=== PATIENT | female | born 1950 | race Caucasian/White ===

== ENCOUNTER 2017-11-18 22:52 | Inpatient (IN) | payer OTHER, MEDICARE ==
[~2017-11-18] VITALS: Ht 175.3 cm; Wt 99.2 kg
[~2017-11-18 22:52] MED LIST: ACEPHEN650 M1 RC; ACETAMINOPHEN325 M3 PO; ACIDOPHILUS1 CAP PO; AGGRENOX 25 MG-1 CAP PO; AGGRENOX 25 MG1 EACH PO; ANTI-DIARRHEAL2 MG PO; APAP325 MG PO; ARTIFICIAL TEAR1 OIN IO; ARTIFICIAL TEAR15 M8 TOP; ATIVAN0.5 M1 PO; ATORVASTATIN CA10 M1 PO; ATORVASTATIN CA10 MG PO; ATORVASTATIN CA40 M1 PO; AZO CRANBERRY450 MG PO; B12 1MG PE1000 MCG/M IM; BANOPHEN25 MG PO; BISAC-EVAC10 M1 RC; BISAC-EVAC10 MG PR; BUPROPION SR150 MG PO; CELEXA20 M1 PO; CELEXA20 MG PO; CEPACOL PO; CIPRO 500MG TA500 MG PO; COLACE100 M1 PO; CYANOCOBAL1000 MCG/2 IM; DEEP SEA 45 ML45 ML NS; DUONEB 3 MG/3 ML3 ML INH/SOL; ENEMA READY TO133 ML RC; ESTRING1 EACH VAG; FENOFIBRATE200 MG PO; FIBER LAXATIV0.52 GM PO; FORTAMET1000 MG PO; GABAPENTIN400 MG PO; GLUCAGON EMERGEN1 M1 IM; HYDROCODON-ACE1 EAC2 PO; HYDROCODONE/ACE1 TA1 PO; HYDROCORTISO453.6 G1 TOP; IBUPROFEN400 M1 PO; INSTA-GLUCOSE G31 GM PO; IPRAT-ALBUT 0.5-3 ML PO; JANUVIA 100MG100 MG PO; JANUVIA100 M1 PO; LANTUS100 U/ML SC; LIDODERM 5% PAT1 PAT TOP; LIORESAL 10MG T10 MG PO; LOPRESSOR 25MG25 MG PO; LOTRIMIN1% TOP; LOVAZA1 GM PO; MAGNESIUM OXID400 MG PO; MAPAP325 MG PO; METFORMIN ER500 MG PO; MILK OF MA400 MG/5 M PO; MILK OF MA400 MG/52 PO; MIRALAX17 GM PO; MOTRIN 400MG (400 MG PO; MULTIVITAMIN1 TAB PO; MYRBETRIQ50 M1 PO; NAPROXEN SOD550 MG PO; NOVOLOG100 U/ML SC; Q TUSSIN DM PO; SALINE SOLUTIO360 ML NAS; SENNA CON/DOCUS1 TAB PO; TRAMADOL HCL50 M1 PO; TRAZODONE50 MG PO; TUMS200 MG PO; TUMS500 MG PO; VITAMIN B650 MG PO; VITAMIN D5000 IU PO; VITAMIN D50000 IU PO; WELLBUTRIN SR200 MG PO; WELLBUTRIN100 M1 PO; ZANAFLEX2 M2 PO; [UNRECOGNIZED DRUG - OTHER] PR
--- NOTE | 2017-11-18 22:57 | ED DYSPNEA/ASTHMA COMPLAINT ---
History of Present Illness General Chief Complaint: Dyspnea (COPD, CHF, Other) Stated Complaint: POSSIBLE ASPIRATION Source: patient, old records Exam Limitations: no limitations Allergies Coded Allergies: NO KNOWN ALLERGIES (UNKNOWN 05/04/17) Reconcile Medications Acetaminophen 325 MG CAPSULE 2 TAB PO Q4P PRN PAIN (Reported) Acetaminophen (Acephen) 650 MG SUPP.RECT 1 MG RC Q4 PRN TEMP (Reported) IF TEMP >101F GIVE Atorvastatin Calcium 40 MG TABLET 40 MG PO 1700 cholesterol Bisacodyl (Bisac-Evac) 10 MG SUPP.RECT 10 MG RC DAILY PRN CONSTIPATION ( Reported) Bupropion HCl (Bupropion XL) 150 MG TAB.ER.24H 1 TAB PO QPM DEPRESSION ( Reported) Calcium Carbonate (TUMS) 200 MG CALCIUM (500 MG) TAB.CHEW 2 TAB PO 4 TIMES/DAY GERD (Reported) Citalopram Hydrobromide (Celexa) 10 MG TABLET 1 TAB PO DAILY DEPRESSION ( Reported) Citalopram Hydrobromide (Celexa) 20 MG TABLET 1 TAB PO DAILY DEPRESSION ( Reported) Cyanocobalamin (Vitamin B-12) (Cyanocobalamin Injection) 1,000 MCG/ML VIAL 1 ML IM Q30D LOW VIT B12 (Reported) GIVEN ON OF EACH MONTH Dextrose/Dextrin/Maltose (Insta-Glucose Gel) 24 GRAM/31 GRAM GEL..GRAM. 24 GM PO DAILY PRN GLUCOSE<60 (Reported) Diphenhydramine HCl (Banophen) 25 MG CAPSULE 1 TAB PO Q6 PRN ITCHING ( Reported) Dipyridamole W/ Aspirin (Aggrenox 25 MG-200 MG Capsule) 25 MG-200 MG CPMP.12HR 1 CAP PO BID CVA (Reported) Docusate Sodium (Colace) 100 MG CAPSULE 1 CAP PO BID CONSTIPATION (Reported) HOLD IF LOOSE STOOL Estradiol (Estring) 7.5 MCG/24 HOUR VAG.RING 2 MG VAG ESTROGEN (Reported) Fenofibrate (Tricor) 48 MG TABLET 1 TAB PO 1200 HLD (Reported) Glucagon,Human Recombinant (Glucagon Emergency Kit) 1 MG KIT 1 MG IM AD PRN HYPOGLYCEMIA (Reported) Hydrocodone/Acetaminophen (Hydrocodon-Acetaminophen 5-325) 5 MG-325 MG TABLET 1 TAB PO Q6P PRN pain 8-10 Hydrocortisone 1 % CREAM..G. 1 LIZBETH TOP BID rash (arm) apply to affected area(s) Ibuprofen 400 MG TABLET 0.5 TAB PO Q6P PRN PAIN (Reported) Insulin Glargine,Hum.rec.anlog (Lantus Solostar) 100 UNIT/ML (3 ML) INSULN.PEN 12 UNIT SC QAM DM TYPE 2 (Reported) Ipratropium/Albuterol Sulfate (Iprat-Albut 0.5-3(2.5) MG/3 Ml) 0.5 MG-3 MG (2.5 MG BASE)/3 ML AMPUL.NEB 1 INH PO Q6 COPD (Reported) Lorazepam (Ativan) 0.5 MG TABLET 0.5 TAB PO Q8P PRN ANXIETY (Reported) Magnesium Hydroxide (Milk Of Magnesia) 400 MG/5 ML ORAL.SUSP 30 ML PO BID PRN CONSTIPATION (Reported) HOLD IF LOOSE STOOLS Metformin HCl (Fortamet) 1,000 MG TAB.ER.24 1 TAB PO BID DM TYPE 2 (Reported) Mirabegron (Myrbetriq) 50 MG TAB.ER.24H 0.5 TAB PO 1200 UNRINARY (Reported) Na Phos,M-B/Na Phos,Di-Ba (Enema Ready To Use) 19 GRAM-7 GRAM/118 ML ENEMA 1 LIZBETH RC DAILY PRN CONSTIPATION (Reported) Polyvinyl Alcohol (Artificial Tears) 1.4 % DROPS 2 DROP TOP BID PRN DRY EYES (Reported) Pregabalin (Lyrica) 75 MG CAPSULE 1 CAP PO Q8 DM NEUROPATHY PAIN (Reported) Psyllium Husk (Fiber Laxative) 0.52 GRAM CAPSULE 1 CAP PO DAILY PRN DIARRHEA (Reported) Sitagliptin Phosphate (Januvia) 100 MG TABLET 1 TAB PO DAILY TYPE 2 DM ( Reported) Soft Lens Rinse-Store Solution (Saline Solution) 360 ML SOLUTION 2 SPRAY BISI BID PRN ALLERGIES (Reported) GIVEN IN EACH NOSTRIL Tizanidine HCl (Zanaflex) 2 MG CAPSULE 1 CAP PO BID MUSLCE SPAMS (Reported) Tramadol HCl 50 MG TABLET 1 TAB PO BIDP PRN PAIN (Reported) Triage Nurses Notes Reviewed? yes Onset: Gradual Duration: hour(s): Timing: single episode today Severity: moderate HPI: 67yo female with hx of CVA, DM, aspiration PNA BIBA from assisted living for aspiration of vomit prior to arrival. Patient states she was taking bowel prep for colonoscopy/endoscopy scheduled for tomorrow. Patient believes she aspirated on some of her vomitus, complaining of dyspnea and cough. Patient also reports persistent nausea. Patient states she has had aspiration pneumonia resulting from colonoscopy prep in the past. When EMS arrived on scene patient' s O2 sat 87% on RA, she was given supplemental oxygen. Patient reports cramping abdominal pain which is under workup through GI, the reason for her scheduled colonoscopy tomorrow. Patient denies chest pain, diarrhea, constipation. (Arlette Thompson) Vital Signs & Intake/Output Vital Signs & Intake/Output Vital Signs Date Time Temp Pulse Resp B/P B/P Pulse O2 O2 Flow FiO2 Mean Ox Delivery Rate 11/19 0038 100.6 11/18 2351 95 Nasal 5.0L Cannula 11/18 2334 100.6 116 18 125/56 95 Nasal 6.0L Cannula 11/18 2301 91 Nasal 4.0L Cannula ED Intake and Output 11/19 0000 11/18 1200 Intake Total 0 Output Total Balance 0 Intake, Oral 0 (Alycia MORENO,Feliciano Escobar) Past History Medical History Any Pertinent Medical History? 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 Hx Contributory? No (Arlette Thompson) Review of Systems Review of Systems Constitutional: Reports: no symptoms. EENTM: Reports: no symptoms. Respiratory: Reports: see HPI. Cardiovascular: Reports: no symptoms. GI: Reports: see HPI. Genitourinary: Reports: no symptoms. Musculoskeletal: Reports: no symptoms. Skin: Reports: no symptoms. Neurological/Psychological: Reports: no symptoms. Hematologic/Endocrine: Reports: no symptoms. Immunologic/Allergic: Reports: no symptoms. All Other Systems: Reviewed and Negative ([place] PA,Arlette Bar) Physical Exam Physical Exam General Appearance: well developed/nourished, no apparent distress, alert, awake , vomitus on patient's gown Head: atraumatic, normal appearance Eyes: Bilateral: normal appearance. Ears, Nose, Throat: hearing grossly normal Neck: normal inspection, supple, full range of motion Respiratory: no respiratory distress, diminished breath sounds bilateral lung bases with corse breath sounds RLL Cardiovascular: tachycardia Peripheral Pulses: 2+ radial (R), 2+ radial (L) Gastrointestinal: normal bowel sounds, soft, non-tender, no organomegaly Extremities: normal inspection Neurologic/Psych: awake, alert, oriented x 3 Skin: intact, normal color Core Measures ACS in differential dx? No CVA/TIA Diagnosis No Sepsis Present: No Sepsis Focused Exam Completed? No (Arlene PINZON,Arlette Bar) ED Sepsis Exam Date of Focused Sepsis Exam: 11/19/17 Time of Focused Sepsis Exam: 0035 Sepsis Cardiac Exam: Tachycardia Sepsis Resp Exam: diminished b/l bases Sepsis Cap Refill Exam: <2 Sec Sepsis Peripheral Pulse Exam: Normal Sepsis Peripheral Pulse Location: Radial Sepsis Skin Color Exam: Normal for Ethnicity Skin Temp/Moisture Exam: Warm/Dry (Arlene PINZON,Arlette Bar) Progress Differential Diagnosis: asthma, AMI, bronchitis, costochondritis, COPD, pneumonia Diagnostic Imaging: Viewed by Me: Radiology Read. Discussed w/RAD: Radiology Read. Radiology Impression: PATIENT: JUSTIN ZAPATA PRESENT AGE: 67 PATIENT ACCOUNT NO: [id number] : 51 LOCATION: [facility] ORDERING PHYSICIAN: Arlette PINZON SERVICE DATE: 11/18/17 EXAM TYPE: RAD - XRY-CHEST XRAY, SINGLE VIEW EXAMINATION:\\H\\ \\N\\XR CHEST CLINICAL INFORMATION: Dyspnea. Cough. COMPARISON: Chest x-ray 08/09/2017 TECHNIQUE: Frontal view of the chest was obtained. 11:13 PM FINDINGS: Surgical clips over the right side of the chest. Lung volume is low. There is a patchy airspace opacity at the right lung base suspicious for infiltrate. This is new since the radiograph 08/09/2017. Left lung remains clear. There is no significant central pulmonary vascular congestion. There is no pleural effusion. The cardiac and mediastinal contours are unchanged. IMPRESSION: Right lower lobe parenchymal infiltrate. DICTATED BY: Ranjit John MD DATE/TIME DICTATED:11/18/172327 PRECISION DEVICES INSPECTOR/TESTER:TONY DATE/TIME TRANSCRIBED:11/18/172327 CONFIDENTIAL, DO NOT COPY WITHOUT APPROPRIATE AUTHORIZATION. <Electronically signed in Other Vendor System> SIGNED BY: Ranjit John MD 11/18/172332 Initial ED EKG: sinus tachycardia @115bpm, LVH, nonspecific ST changes Prior EKG: unchanged (07/07/16) (Arlene PINZON,Arlette Bar) Plan of Care: Orders Procedure Date/time Status LACTIC ACID 11/19 0156 Active Patient Data 11/20 39 Active RAPID VIRAL INFLUENZA A 11/19 2255 Active BLOOD CULTURE 11/19 2255 Active URINALYSIS 11/19 2255 Active TROPONIN LEVEL 11/19 2255 Complete LACTIC ACID 11/19 2255 Complete COMPREHENSIVE METABOLIC PANEL 11/19 2255 Complete CBC WITHOUT DIFFERENTIAL 11/19 2255 Complete EKG 11/19 2255 Active Current Medications Sig/Sravani Start time Last Medication Dose Stop Time Status Admin Sodium Chloride 1,000 ML BOLUS ONE 11/19 0045 AC (Normal Saline 0.9%) 11/19 0144 Sodium Chloride 1,000 ML BOLUS ONE 11/19 0045 AC (Normal Saline 0.9%) 11/19 0144 Sodium Chloride 1,000 ML BOLUS ONE 11/19 0030 AC (Normal Saline 0.9%) 11/19 0129 Sodium Chloride 1,000 ML ONCE ONE 11/18 2345 AC 11/19 (Normal Saline 0.9%) 11/19 0624 0008 Laboratory Tests 11/18/172322: Anion Gap 17 H, Estimated GFR > 60, BUN/Creatinine Ratio 38.8 H, Glucose 206 H, Lactic Acid 2.1, Calcium 9.6, Total Bilirubin 0.6, AST 17, ALT 18, Alkaline Phosphatase 78, Troponin I < 0.01, Total Protein 7.6, Albumin 4.0, Globulin 3.6, Albumin/Globulin Ratio 1.1, CBC w Diff NO MAN DIFF REQ, RBC 4.04 L, MCV 87.8, MCH 27.8, MCHC 31.7 L, RDW 15.5 H, MPV 8.2, Gran % 83.8 H, Lymphocytes % 12.4 L, Monocytes % 3.2, Eosinophils % 0.3, Basophils % 0.3, Absolute Granulocytes 12.6 H, Absolute Lymphocytes 1.9, Absolute Monocytes 0.5, Absolute Eosinophils 0.1, Absolute Basophils 0 Microbiology 11/19 0005 BLOOD: Blood Culture - RECD 11/19 0000 BLOOD: Blood Culture - RECD 11/18 2256 NASOPHARYN: Influenza Virus A & B Rapid Smear - ORD Patient requires supplemental oxygen given her hypoxia at rest. Patient's blood work shows leukocytosis, elevated lactic acid. Patient's chest x-ray shows right lower lobe infiltrate. Patient meets criteria for severe sepsis. She was started on IV Unasyn, IV fluids. Patient was seen and evaluated by Dr. Tong. I spoke with hospitalist, Dr. Ricks regarding patient's general medicine admission. (Arlene PINZON,Arlette Bar) Comments: 11/19/2017 12:30:46 AM other than pain secondary to a "bedsore" the patient states she has no trouble breathing or chest pains currently. Oxygen saturation is 95% on nasal cannula. (Alycia MORENO,Feliciano Escobar) Departure Departure Disposition: STILL A PATIENT Condition: Stable Clinical Impression Primary Impression: Aspiration pneumonia Qualifiers: Aspiration pneumonia type: unspecified Laterality: right Lung location: lower lobe of lung Qualified Code: J69.0 - Pneumonitis due to inhalation of food and vomit Secondary Impressions: Severe sepsis Referrals: Andre MORENO,Grant Scott (PCP/Family) Departure Forms: Customer Survey General Discharge Information Admission Note Spoke With: Shaunna Ricks MD Documentation of Exam: Documentation of any treatments & extenuating circumstances including Concerns Regarding Discharge (functional status, medication knowledge or non-compliance, living conditions, etc.) that warrant an admission rather than observation: [ Aspiration pneumonia, severe sepsis, hypoxia requiring supplemental oxygen, IV antibiotics, IV fluids, respiratory therapy treatments repeat labs, premature discharge medically unsafe] (Arlette Thompson) PA/GARBAGE PICK UP MAN Co-Sign Statement Statement: ED Attending supervision documentation- [x] I saw and evaluated the patient. I have also reviewed all the pertinent lab results and diagnostic results. I agree with the findings and the plan of care as documented in the PA's/GARBAGE PICK UP MAN's documentation. Patient presents for evaluation of possible aspiration. Physical examination reveals rhonchi anteriorly. [] I have reviewed the ED Record and agree with the PA's/GARBAGE PICK UP MAN's documentation. [] Additions or exceptions (if any) to the PAs/GARBAGE PICK UP MAN's note and plan are summarized below: [] (Alycia MORENO,Feliciano Escobar) Critical Care Note Critical Care Note Critical Care Time: 30-74 min (Arlene PINZON,Arlette Bar)
[2017-11-18 23:29] LABS: ABSOLUTE BASOPHIL COUNT 0 /CUMM (0.0-0.2); ABSOLUTE EOSINOPHIL COUNT 0.1 /CUMM (0.0-0.7); ABSOLUTE LYMPH COUNT 1.9 /CUMM (1.2-3.4); ABSOLUTE MONOCYTE COUNT 0.5 /CUMM (0.10-0.60); BASOPHIL % 0.3 % (0.0-2.0); EOSINOPHIL % 0.3 % (0-5); GRANULOCYTE % 83.8 % (42.2-75.2); HEMATOCRIT 35.5 % (37-47); MEAN CORPUSCULAR HGB 27.8 PG (27.0-31.0); MEAN CORPUSCULAR HGB CONC 31.7 G/DL (33.0-37.0); MEAN CORPUSCULAR VOLUME 87.8 FL (81.0-99.0); MEAN PLATELET VOLUME 8.2 FL (7.4-10.4); PLATELET COUNT 237 /CUMM (130-400); RBC DISTRIBUTION WIDTH 15.5 % (11.5-14.5); RED BLOOD CELL CT 4.04 /CUMM (4.20-5.40)
[2017-11-18 23:30] LABS: ABSOLUTE GRANULOCYTE CT 12.6 /CUMM (1.4-6.5)
--- NOTE | 2017-11-18 23:33 | RADIOLOGY REPORT ---
EXAMINATION:\H\ \N\XR CHEST CLINICAL INFORMATION: Dyspnea. Cough. COMPARISON: Chest x-ray 08/09/2017 TECHNIQUE: Frontal view of the chest was obtained. 11:13 PM FINDINGS: Surgical clips over the right side of the chest. Lung volume is low. There is a patchy airspace opacity at the right lung base suspicious for infiltrate. This is new since the radiograph 08/09/2017. Left lung remains clear. There is no significant central pulmonary vascular congestion. There is no pleural effusion. The cardiac and mediastinal contours are unchanged. IMPRESSION: Right lower lobe parenchymal infiltrate.
--- NOTE | 2017-11-19 00:50 | History & Physical ---
Kiana MORENO,Harjeet 11/19/17 0049: General Information and HPI MD Statement: I have seen and personally examined JUSTIN ZAPATA and documented this H&P. The patient is a 67 year old F who presented with a patient stated chief complaint of [aspiration]. Source of Information: patient, old records Exam Limitations: no limitations History of Present Illness: Patient is a 67-year-old female with an extensive past medical history significant for dysphasia, CVA/TIAs with residual right-sided weakness, depression, anxiety, COPD, OA, insulin-dependent diabetes mellitus, HLD, chronic pressure ulcers on her buttocks and coccyx, chronic neck/back pain, who was brought into the [facility] ED by ambulance from [facility] for suspected aspiration. Patient was taking a bowel prep in anticipation for a colonoscopy the following day. She reports after taking one of the doses of the bowel prep she felt nauseated and vomited, after which she experienced severe shortness of breath and was coughing. She did not produce any sputum with the cough, no blood in emesis. She reports chronic intermittent abdominal cramping pain that was made worse with the episode of emesis. She began having chills after this episode, was eventually able to catch her breath was so was coughing, she also reported lightheadedness which has since resolved. She denied any chest pain, palpitations, syncope, subjective fevers. Allergies/Medications Allergies: Coded Allergies: NO KNOWN ALLERGIES (UNKNOWN 05/04/17) Home Med list Acetaminophen 325 MG CAPSULE 2 TAB PO Q4P PRN PAIN (Reported) Acetaminophen (Acephen) 650 MG SUPP.RECT 1 MG RC Q4 PRN TEMP (Reported) IF TEMP >101F GIVE Atorvastatin Calcium 40 MG TABLET 40 MG PO 1700 cholesterol Bisacodyl (Bisac-Evac) 10 MG SUPP.RECT 10 MG RC DAILY PRN CONSTIPATION ( Reported) Calcium Carbonate (TUMS) 200 MG CALCIUM (500 MG) TAB.CHEW 2 TAB PO 4 TIMES/DAY GERD (Reported) Citalopram Hydrobromide (Celexa) 20 MG TABLET 1 TAB PO DAILY DEPRESSION ( Reported) Cyanocobalamin (Vitamin B-12) (Cyanocobalamin Injection) 1,000 MCG/ML VIAL 1 ML IM Q30D LOW VIT B12 (Reported) GIVEN ON OF EACH MONTH Dextrose/Dextrin/Maltose (Insta-Glucose Gel) 24 GRAM/31 GRAM GEL..GRAM. 24 GM PO DAILY PRN GLUCOSE<60 (Reported) Diphenhydramine HCl (Banophen) 25 MG CAPSULE 1 TAB PO Q6 PRN ITCHING ( Reported) Dipyridamole W/ Aspirin (Aggrenox 25 MG-200 MG Capsule) 25 MG-200 MG CPMP.12HR 1 CAP PO BID CVA (Reported) Docusate Sodium (Colace) 100 MG CAPSULE 1 CAP PO BID CONSTIPATION (Reported) HOLD IF LOOSE STOOL Estradiol (Estring) 7.5 MCG/24 HOUR VAG.RING 2 MG VAG ESTROGEN (Reported) Glucagon,Human Recombinant (Glucagon Emergency Kit) 1 MG KIT 1 MG IM AD PRN HYPOGLYCEMIA (Reported) Hydrocodone/Acetaminophen (Hydrocodon-Acetaminophen 5-325) 5 MG-325 MG TABLET 1 TAB PO Q6P PRN pain 8-10 Hydrocortisone 1 % CREAM..G. 1 LIZBETH TOP BID rash (arm) apply to affected area(s) Ibuprofen 400 MG TABLET 0.5 TAB PO Q6P PRN PAIN (Reported) Insulin-Lantus (Lantus) 100 UNIT/ML VIAL 28 UNITS SC DAILY DIABETES (Reported ) Ipratropium/Albuterol Sulfate (Iprat-Albut 0.5-3(2.5) MG/3 Ml) 0.5 MG-3 MG (2.5 MG BASE)/3 ML AMPUL.NEB 1 INH PO Q6 COPD (Reported) Lorazepam (Ativan) 0.5 MG TABLET 0.5 TAB PO Q8P PRN ANXIETY (Reported) Magnesium Hydroxide (Milk Of Magnesia) 400 MG/5 ML ORAL.SUSP 30 ML PO BID PRN CONSTIPATION (Reported) HOLD IF LOOSE STOOLS Metformin HCl (Fortamet) 1,000 MG TAB.ER.24 1 TAB PO BID DM TYPE 2 (Reported) Mirabegron (Myrbetriq) 50 MG TAB.ER.24H 0.5 TAB PO 1200 UNRINARY (Reported) Na Phos,M-B/Na Phos,Di-Ba (Enema Ready To Use) 19 GRAM-7 GRAM/118 ML ENEMA 1 LIZBETH RC DAILY PRN CONSTIPATION (Reported) Polyvinyl Alcohol (Artificial Tears) 1.4 % DROPS 2 DROP TOP BID PRN DRY EYES (Reported) Pregabalin (Lyrica) 100 MG CAPSULE 1 CAP PO TID MUSCLE SPASMS (Reported) Psyllium Husk (Fiber Laxative) 0.52 GRAM CAPSULE 1 CAP PO DAILY PRN DIARRHEA (Reported) Sitagliptin Phosphate (Januvia) 100 MG TABLET 1 TAB PO DAILY TYPE 2 DM ( Reported) Soft Lens Rinse-Store Solution (Saline Solution) 360 ML SOLUTION 2 SPRAY BISI BID PRN ALLERGIES (Reported) GIVEN IN EACH NOSTRIL Tizanidine HCl (Zanaflex) 2 MG CAPSULE 1 CAP PO BID MUSLCE SPAMS (Reported) Tramadol HCl 50 MG TABLET 1 TAB PO BIDP PRN PAIN (Reported) Past History Travel History Traveled to [place] past 21 day No Medical History Neurological: CVA, migraine EENT: NONE Cardiovascular: NONE Respiratory: pneumonia, ASPIRATION PNA Gastrointestinal: NONE Hepatic: NONE Renal: UTI'S Musculoskeletal: disk herniation, C-SPINE Psychiatric: NONE Endocrine: diabetes Blood Disorders: NONE Cancer(s): NONE 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 Psychosocial History Where do you live? [facility] Services at Home: Nursing Primary Language: Icelandic Smoking Status: Former Smoker ETOH Use: denies use Illicit Drug Use: denies illicit drug use Functional Ability Ambulation: non-ambulatory Review of Systems Review of Systems Constitutional: Reports: chills. Denies: fever. EENTM: Reports: no symptoms. Cardiovascular: Denies: chest pain, palpitations, syncope. Respiratory: Reports: cough, short of breath. Denies: sputum production. GI: Reports: abdominal pain, nausea, vomiting. Denies: diarrhea, melena. Genitourinary: Reports: no symptoms. Musculoskeletal: Reports: back pain, neck pain. Skin: Reports: no symptoms. Neurological/Psychological: Reports: pre-existing deficit. Exam & Diagnostic Data Last 24 Hrs of Vital Signs/I&O Vital Signs Date Time Temp Pulse Resp B/P B/P Pulse O2 O2 Flow FiO2 Mean Ox Delivery Rate 11/19 0148 99.4 115 20 94 Nasal 5.0L Cannula 11/19 0038 100.6 11/18 2351 95 Nasal 5.0L Cannula 11/18 2334 100.6 116 18 125/56 95 Nasal 6.0L Cannula 11/18 2301 91 Nasal 4.0L Cannula Intake & Output 11/19 0800 11/19 0000 11/18 1600 Intake Total 0 Output Total Balance 0 Intake, Oral 0 Physical Exam General Appearance Alert, Oriented X3, No Acute Distress, not cooperative with lung exam, refused to allow auscultation of posterior lung bai or skin exam of her chronic pressure wounds Skin Temp/Moisture Exam: Warm/Dry Sepsis Skin Exam (color): Normal for Ethnicity HEENT dry mucous membranes Cardiovascular Regular Rate, Normal S1, Normal S2 Lungs diffuse rhconchi, exam limited by patient not allowing exam of posterior lung bai Abdomen Normal Bowel Sounds, Soft, diffuse mild tenderness to palpation, no rebound tenderness or gaurding, surgical scar on the epigastrum Neurological R sided hemiparesis, RUE 3/5, RLE 3/5 strength, normal sensation Extremities No Clubbing, No Cyanosis, No Edema, Normal Pulses Sepsis Peripheral Pulse Location: Radial Sepsis Peripheral Pulse Exam: Normal Sepsis Cap Refill Exam: <2 Sec Last 24 Hrs of Labs/Jameson: Laboratory Tests 11/19/17 0232: Urine Color Pending, Urine Clarity Pending, Urine pH Pending, Ur Specific [place] Pending, Urine Protein Pending, Urine Ketones Pending, Urine Nitrite Pending, Urine Bilirubin Pending, Urine Urobilinogen Pending, Ur Leukocyte Esterase Pending, Ur Microscopic Pending, Urine Hemoglobin Pending, Urine Glucose Pending 11/19/17 0203: Lactic Acid Pending 11/18/17 2323: Anion Gap 17 H, Estimated GFR > 60, BUN/Creatinine Ratio 38.8 H, Glucose 206 H, Lactic Acid 2.1, Calcium 9.6, Total Bilirubin 0.6, AST 17, ALT 18, Alkaline Phosphatase 78, Troponin I < 0.01, Total Protein 7.6, Albumin 4.0, Globulin 3.6, Albumin/Globulin Ratio 1.1, CBC w Diff NO MAN DIFF REQ, RBC 4.04 L, MCV 87.8, MCH 27.8, MCHC 31.7 L, RDW 15.5 H, MPV 8.2, Gran % 83.8 H, Lymphocytes % 12.4 L, Monocytes % 3.2, Eosinophils % 0.3, Basophils % 0.3, Absolute Granulocytes 12.6 H, Absolute Lymphocytes 1.9, Absolute Monocytes 0.5, Absolute Eosinophils 0.1, Absolute Basophils 0 Microbiology 11/19 0150 NASOPHARYN: Influenza Virus A & B Rapid Smear - COMP 11/19 0005 BLOOD: Blood Culture - RECD 11/19 0000 BLOOD: Blood Culture - RECD Diagnostic Data EKG Results Sinus tachycardia, HR 114, no significant ST-T changes CXR Results FINDINGS: Surgical clips over the right side of the chest. Lung volume is low. There is a patchy airspace opacity at the right lung base suspicious for infiltrate. This is new since the radiograph 08/09/2017. Left lung remains clear. There is no significant central pulmonary vascular congestion. There is no pleural effusion. The cardiac and mediastinal contours are unchanged. IMPRESSION: Right lower lobe parenchymal infiltrate. Assessment/Plan Assessment: Patient is a 67-year-old female with an extensive past medical history significant for dysphasia, CVA/TIAs with residual right-sided weakness, depression, anxiety, COPD, OA, insulin-dependent diabetes mellitus, HLD, chronic pressure ulcers on her buttocks and coccyx, chronic neck/back pain, who was brought into the [facility] ED by ambulance from [facility] for suspected aspiration. Patient meets criteria for severe sepsis with 3 SIRS criteria: Tachycardia, fever, leukocytosis. Also elevated lactic acid 2.1. Vital signs on presentation: T 100.6, P116, RR 18, BP 125/56, 91% on 4 L O2 nasal cannula (of note EMS reported that patient desaturated to 87% and worked to hospital on room air) Pertinent labs on admission: WBC 15, H&H 11.2/35.5, lactic acid 2.1, BUN 31, glucose 206 Problem list #Severe sepsis secondary to aspiration pneumonia #Acute hypoxic respiratory failure secondary to pneumonia #Chronic medical problems Plan -Admit to general medicine -Aggressive IV fluid rehydration with normal saline -Aspiration precautions -IV Unasyn -TRC/nebs -Patient adamantly refuses swallow evaluation, she has been made aware of the risks associated with recurrent aspiration and worsening of her pneumonia -Trend lactic acid until normal Diet: Regular diet nectar thick liquids, regular solids DVT prophylaxis: Lovenox, ALPS CODE STATUS: DNR/DNI As Ranked By This Provider Problem List: 1. Aspiration pneumonia Qualifiers Aspiration pneumonia type: unspecified Laterality: right Lung location: lower lobe of lung Qualified Code: J69.0 - Pneumonitis due to inhalation of food and vomit 2. Severe sepsis Core Measures/Misc (05/09) Acute Coronary Syndrome ACS Diagnosis: No Congestive Heart Failure Congestive Heart Failure Diagnosis No Cerebrovascular Accident CVA/TIA Diagnosis: No VTE (View Protocol) VTE Risk Factors Immobility No Mechanical VTE Prophylaxis d/t N/A MechProphylax Ordered No VTE Pharm Prophylaxis d/t NA PharmProphylax ordered Sepsis (View protocol) Sepsis Present: Yes Susy Rodriguez 11/19/17 0257: Resident Review Statement Resident Statement: examined this patient, discussed with international trade manager, agreed with international trade manager, reviewed EMR data (avail), reviewed images Other Findings: 66-year-old female, wheelchair-bound, former heavy tobacco user with a history of,COPD not on home oxygen, GERD, hypertension, dyslipidemia, insulin-dependent diabetes mellitus, urinary incontinence, chronic anemia, peripheral vascular disease s/p LE stents, cervical spine disease s/p surgical interventions, and previous strokes/TIAs with residual right hemiparesis, dysphasia on aggrenox, chronic pressure ulcers on buttocks and coccyx, depression, anxiety, who presented from her SNF shortness breath and desaturation when she was taking a prep [30 ounces] for a endoscopy and colonoscopy scheduled for today at [facility]. Patient found to be desaturating to 87% on room air and placed on nonrebreather by EMS. Denied any cough with expectoration, chest pain, palpitations, syncope, subjective fevers, bloody diarrhea, constipation, headaches or worsening weakness Vitals on examination MAXIMUM TEMPERATURE 100.6, heart rate 116, respiratory rate 18, saturating 95% on 6 L nasal cannula, blood pressure 125/56 On examination alert and oriented 3, very dry mucous membranes, pupils equal round and reactive, RS: Bilateral coarse rhonchi, CVS S1-S2 no murmurs heard Abdomen: Soft, diffuse tenderness to palpation, no guarding no rigidity or skin discoloration noted, scar from previous PEG tube site present. MSK: No edema appreciated. Right arm contracted unable to spread her fingers power 2-3 out of 5, rest of her extremities are 3-4/5. Patient refused to allow us to examine her ulcers. Labs significant for WBC 15, hemoglobin 11.2, hematocrit 35.5, platelets 237, sodium 141, potassium 4.3, chloride 104, carb 20, B1 31, creatinine 0.8, glucose 206, lactic acid 2.1, normal LFT, troponin negative, UA pending. Chest x-ray significant for Surgical clips over the right side of the chest. Lung volume is low. There is a patchy airspace opacity at the right lung base suspicious for infiltrate. This is new since the radiograph 08/09/2017. Left lung remains clear.There is no significant central pulmonary vascular congestion. There is no pleural effusion. The cardiac and mediastinal contours are unchanged. EKG HR 115,NSR, Last echo done 05/05/2017 showed EF of 55% Assessment: Acute hypoxic respiratory failure in the setting of severe sepsis secondary to possible aspiration pneumonia versus healthcare associated pneumonia Problem list: Acute hypoxic respiratory failure Severe sepsis Diabetes mellitus CVA Cervical stenosis Depression/anxiety Chronic pressure ulcers Plan -Admit patient to general medicine floor, vitals per protocol, aspiration precautions -Currently on 3RD L of bolus ns, continue to monitor BP closely -TRC/nebs, taper supplemental oxygen to keep O2 above 90 -Trend Lactic acid -Holding Imdur -Continue IV Unasyn pending blood /sputum/urine cultures,strep/legion Ag -Accucheck, ISS, on 28 units of glargine-> will cut down to 14 and reassess later -diabetic diet -holding metformin -continue home meds of celexa, lyrica, myrbetiq,statin,aggrenox and zanaflex -Pt was scheduled for endoscopy and colonscopy. Please inform Dr. Hitchcock's office of her admission. -wound consult in am Patient is aware that she is high risk for aspiration and its consequences of her condition worsening, she still wishes to be on a regular diet with thickened liquids. Declined to be kept NPO and go for swallow eval. dvt ppx sc lovenox DNR/DNI Shaunna Ricks 11/19/17 0525: Attending MD Review Statement Attending Statement Attending MD Statement: examined this patient, discuss w/resident/PA/ARM MAKER, agreed w/resident/PA/ARM MAKER, reviewed EMR data (avail), reviewed images, amended to note Attending Assessment/Plan: CC: Choking on vomiting PMH: HTN, DM2, CVA with residual right-sided weakness, HLD, cervical spondylosis , HFrEF, RA, ? Overactive bladder: On diapers, ?COPD, anxiety and depression, GERD, oropharyngeal dysphagia Patient was brought in ER through EMS from [facility] after an episode of aspiration on vomiting. Patient is non-ambulating, wheelchair-bound and bedbound secondary to her CVA, residual right-sided weakness, contractures and arthritis. She had a scheduled endoscopy and colonoscopy tomorrow and was undergoing bowel preparation. She drank 30 mL solution when she had an episode of vomiting followed by which her oxygen saturation dropped to 87%, she had significant coughing episode, significantly short of breath. She had an episode of chills and abdominal pain. Vomiting was nonbloody. No diarrhea. She was immediately rushed to ER. Patient was on NRB in EMS and was placed on 4 L nasal cannula on arrival in ER. Other than these complaints ROS unremarkable. Patient was undergoing prep and month of August when she had similar episode but she does not recall where she was hospitalized. The bowel prep was discontinued and her procedure was rescheduled for tomorrow and this time instead of GoLYTELY she was getting MoviPrep. She does have a history of dysphagia and had history of PEG tube placement after her stroke for 3 years in early but now she eats regular solids and nectar thick liquids. Vitals: T max 100.6, pulse 116, RR 18, blood pressure 125/56, saturating 91% on 5 L nasal cannula On exam: A O 3, cooperative, mild respiratory distress, neck supple, JVD normal , no lymphadenopathy, mucosa dry, residual right-sided weakness, no new focal neuro deficit, bilateral upper extremity contractures, remarkable arthritis and deformities no dependent edema, no obvious skin rashes or inflammation CVS: S1- S2, RRR. RS: Clear to auscultate bilaterally. Abdomen: Soft, NT, ND, bowel sounds present. Patient has a small skin break on left side of coccyx, and noninfected, blanching and redness on right buttock but no open wound. CXR: right lower lobe parenchymal infiltrate. Assessment and plan 67-year-old female with multiple comorbidities as mentioned above was presented in ER after an episode of aspiration on her vomiting. She was undergoing bowel prep for scheduled colonoscopy, after drinking 30 mL of MoviPrep patient vomited and then aspirated on vomiting and immediately had severe shortness of breath cough, chills, hypoxia. Patient was rushed to ER through EMS and was placed on nonrebreather. Patient was saturating 87% on arrival in ER on room air. Was placed on 5 L nasal cannula, saturating 92-95%. Patient appears mild to moderate respiratory distress, rhonchi bilaterally, no JVD, mucosa dry. Patient has significant leukocytosis with left shift, fever spike, tachycardia and lactic acidosis. X-ray confirms the finding of aspiration pneumonia. Patient appears to have severe sepsis secondary to aspiration and will benefit admission for IV antibiotics, supplemental oxygen, nebulization treatment. Patient refuses to be nothing by mouth, refuses swallow evaluation and wants to eat. + Aspiration pneumonia + Severe sepsis + Acute hypoxic respiratory failure + History of HTN, DM2, CVA with residual right-sided weakness, HLD, cervical spondylosis, HFrEF, RA, ? Overactive bladder: On diapers, ?COPD, anxiety and depression, GERD, oropharyngeal dysphagia - Admit to general medicine - Continue aggressive hydration - Trend lactate - Obtain blood culture, sputum cultures - Continue IV Unasyn - TRC nebs - Continue nectar thick liquids and regular solids - Patient refuses swallow evaluation - Continue all her home medications except oral hypoglycemic, continue basal and bolus insulin - DVT prophylaxis - DVT prophylaxis
[2017-11-19] MEDS ORDERED: LANTUS100 UNIT/1 SC (02:39)
[2017-11-19] MEDS ORDERED: LYRICA100 M1 PO (02:50)
[2017-11-19 03:21] VITALS: BP 128/54
--- NOTE | 2017-11-19 05:27 | Admission Certification ---
Admission Certification Certification Statement - As attending physician, I certify that at the time of - admission, based on clinical presentation, severity of - symptoms, need for further diagnostic testing and - therapeutic interventions, and risk of adverse outcomes - without in-hospital treatment, in my clinical assessment, - this patient requires an acute hospital stay for a minimum - of two nights or longer. I have also considered psychsocial - factors such as support system, advanced age, financial - issues, cognitive issues, and failed out-patient treatments, - past re-admission history, safety of patient, and lack of - compliance as applicable. Specific rationale supporting this admission is: aspiration pneumonia
--- NOTE | 2017-11-19 07:14 | PN- Housestaff ---
Subjective Follow-up For: Aspiration pneumonia. Subjective: Ms Roberts was seen and examined this morning. She is resting comfortably in bed. She states that she is very tired owing to the fact that she did not get much rest yesterday. She states she does feel better and has found being in the hospital last few hours has helped. She denies any fever, chills, nausea, vomiting. States that she is not experiencing any cough, shortness of breath, chest pain or any chest discomfort. She is not endorsing any pain at the moment. She had a wound care consult prior to her clinical interaction. States that she would like to order a diet. Review of Systems Constitutional: Reports: see HPI. Objective Last 24 Hrs of Vital Signs/I&O Vital Signs Date Time Temp Pulse Resp B/P B/P Pulse O2 O2 Flow FiO2 Mean Ox Delivery Rate 11/19 1043 96 Nasal 3.0L Cannula 11/19 1039 Nasal 3.0L Cannula 11/19 0716 99.8 98 20 132/56 93 11/19 0321 99.8 100 20 128/54 93 11/19 0252 Nasal 5.0L Cannula 11/19 0148 99.4 115 20 94 Nasal 5.0L Cannula 11/19 0038 100.6 11/18 2351 95 Nasal 5.0L Cannula 11/18 2334 100.6 116 18 125/56 95 Nasal 6.0L Cannula 11/18 2301 91 Nasal 4.0L Cannula Intake & Output 11/19 1600 11/19 0800 11/19 0000 Intake Total 1340 0 Output Total Balance 1340 0 Intake, IV 1100 Intake, Oral 240 0 Patient 99.2 kg Weight Weight Bed scale Measurement Method Physical Exam General Appearance: Alert, Oriented X3, Cooperative Skin: Stage 2 pressure injury on Coccyx 0.3 cm X 0.1 cm Right buttock noted with a 0.4 x 0.7 cm area of raised scar tissue with maceratioon/superficial breakdown at surface and irregular appearance noted. Presented as stage two. Cardiovascular: Normal S1, Normal S2 Lungs: Normal Air Movement, Diminished Breath Sounds Bilaterally Abdomen: Normal Bowel Sounds, Soft, No Tenderness Neurological: Normal Speech Extremities: No Edema, Normal Pulses, No Tenderness/Swelling Vascular: Normal Pulses Current Medications: Current Medications Sig/Sravani Start time Last Medication Dose Route Stop Time Status Admin Acetaminophen 0 .STK-MED ONE 11/19 0013 DC IV Acetaminophen 1,000 MG ONCE ONE 11/18 2345 DC 11/19 N/A 1 UNIT IV 11/18 2359 0038 Albuterol Sulfate 3 ML Q4P PRN 11/19 1100 AC INH Albuterol Sulfate 3 ML ONCE ONE 11/18 2300 DC 11/18 INH 11/18 2301 2301 Ampicillin Sodium/ 3,000 MG Q6 11/19 0600 AC 11/19 Sulbactam Sodium IV 1256 Sodium Chloride 100 ML Ampicillin Sodium/ 0 .STK-MED ONE 11/19 0013 DC Sulbactam Sodium .ROUTE Ampicillin Sodium/ 3,000 MG ONCE ONE 11/18 2345 DC 11/19 Sulbactam Sodium IV 11/19 0014 0008 Sodium Chloride 100 ML Atorvastatin Calcium 40 MG 1700 11/19 1700 AC PO Citalopram 20 MG DAILY 11/19 1000 AC 11/19 Hydrobromide PO 1059 Dipyridamole/Aspirin 1 CAP BID 11/19 1000 AC 11/19 PO 1059 Enoxaparin Sodium 40 MG DAILY 11/19 1000 AC 11/19 SC 1058 Ibuprofen 200 MG Q6P PRN 11/19 1330 AC 11/19 PO 1448 Insulin Aspart 0 TIDAC 11/19 0800 AC 11/19 SC 1259 Insulin Detemir 14 UNITS BID 11/19 2200 AC SC Insulin Detemir 14 UNITS ONCE ONE 11/19 1130 DC 11/19 SC 11/19 1131 1159 Insulin Detemir 14 UNITS DAILY 11/19 1000 DC SC Ipratropium [place] 2.5 ML Q6 PRN 11/19 0245 DC INH Ipratropium [place] 2.5 ML ONCE ONE 11/18 2300 DC 11/18 INH 11/18 2301 2301 Isosorbide 60 MG DAILY 11/19 1330 AC Mononitrate PO Mirabegron 25 MG DAILY 11/19 1000 AC 11/19 PO 1059 Ondansetron HCl 4 MG ONCE ONE 11/18 2345 DC 11/18 IV 11/18 2346 2350 Ondansetron HCl 0 .STK-MED ONE 11/18 2340 DC .ROUTE Patient Medication 1 ED ONE ONE 11/19 1345 DC Teaching ED 11/19 1346 Pregabalin 100 MG TID 11/19 1000 AC 11/19 PO 1059 Sodium Chloride 1,000 ML BOLUS ONE 11/19 0045 DC 11/19 IV 11/19 0144 0351 Sodium Chloride 1,000 ML BOLUS ONE 11/19 0045 CAN IV 11/19 0144 Sodium Chloride 1,000 ML BOLUS ONE 11/19 0030 DC 11/19 IV 11/19 0129 0139 Sodium Chloride 1,000 ML ONCE ONE 11/18 2345 DC 11/19 IV 11/19 0624 0008 Tizanidine HCl 2 MG DAILY 11/19 1000 AC 11/19 PO 1059 Vitamin A/Vitamin D 1 LIZBETH BID 11/19 0338 AC 11/19 TOP 1059 Last 24 Hrs of Lab/Jameson Results Last 24 Hrs of Labs/Mics: Laboratory Tests 11/19/17 0610: Anion Gap 14, Estimated GFR > 60, BUN/Creatinine Ratio 38.6 H, CBC w Diff NO MAN DIFF REQ, RBC 3.11 L, MCV 88.3, MCH 29.2, MCHC 33.0, RDW 15.4 H, MPV 8.6, Gran % 86.8 H, Lymphocytes % 9.9 L, Monocytes % 3.0, Eosinophils % 0.1, Basophils % 0.2, Absolute Granulocytes 13.9 H, Absolute Lymphocytes 1.6, Absolute Monocytes 0.5, Absolute Eosinophils 0, Absolute Basophils 0 11/19/17 0500: Lactic Acid 1.8 11/19/17 0232: Urine Color ORANG H, Urine Clarity CLDY H, Urine pH 5.0, Ur Specific [place] 1.025, Urine Protein 100 H, Urine Ketones TRACE H, Urine Nitrite POS H, Urine Bilirubin NEG, Urine Urobilinogen 1.0, Ur Leukocyte Esterase LARGE H, Ur Microscopic SEDIMENT EXAMINED, Urine RBC 3-5, Urine WBC PACKD H, Ur Epithelial Cells MOD H, Urine Bacteria MANY H, Urine Hemoglobin SMALL H, Urine Glucose NEG 11/19/17 0203: Lactic Acid 3.0 H 11/18/17 2323: Anion Gap 17 H, Estimated GFR > 60, BUN/Creatinine Ratio 38.8 H, Glucose 206 H, Lactic Acid 2.1, Calcium 9.6, Total Bilirubin 0.6, AST 17, ALT 18, Alkaline Phosphatase 78, Troponin I < 0.01, Total Protein 7.6, Albumin 4.0, Globulin 3.6, Albumin/Globulin Ratio 1.1, CBC w Diff NO MAN DIFF REQ, RBC 4.04 L, MCV 87.8, MCH 27.8, MCHC 31.7 L, RDW 15.5 H, MPV 8.2, Gran % 83.8 H, Lymphocytes % 12.4 L, Monocytes % 3.2, Eosinophils % 0.3, Basophils % 0.3, Absolute Granulocytes 12.6 H, Absolute Lymphocytes 1.9, Absolute Monocytes 0.5, Absolute Eosinophils 0.1, Absolute Basophils 0 Microbiology 11/20 231 URINE ROUT: Legionella Antigen - COMP 11/19 023 URINE ROUT: Streptococcus pneumoniae Antigen (M - COMP 11/20 231 URINE ROUT: Urine Culture - RECD 11/19 0150 NASOPHARYN: Influenza Virus A & B Rapid Smear - COMP 11/19 0005 BLOOD: Blood Culture - RECD 11/19 0000 BLOOD: Blood Culture - RECD Assessment/Plan Assessment: Ms Roberts is a 67-year-old female with an extensive past medical history significant for dysphasia, CVA/TIAs with residual right-sided weakness, depression, anxiety, COPD, OA, insulin-dependent diabetes mellitus, HLD, chronic pressure ulcers on her buttocks and coccyx, chronic neck/back pain, who was [facility] into [facility] ED by ambulance from [facility] for suspected aspiration after drinking MoviPrep for outpatient colonoscopy scheduled for 11/19/2017. She met criteria for severe sepsis with 3 SIRS criteria: Tachycardia, fever, leukocytosis. Vital signs on presentation: T 100.6, P116, RR 18, BP 125/56, 91% on 4 L O2 nasal cannula. Pertinent labs on admission: WBC 15, H&H 11.2/35.5, lactic acid 2.1, BUN 31, glucose 206 Problem list #Severe sepsis secondary to aspiration pneumonia #Acute hypoxic respiratory failure secondary to pneumonia #Non healing wounds to buttocks #History of diabetes #Swallowing abnormalities #Chronic medical problems Plan -Continue admission on general medicine -Aggressive IV fluid rehydration with normal saline -Aspiration precautions -IV Unasyn, follow-up on cultures and sensitivities. -TRC/nebs -Incentive spirometer. -Taper oxygen as tolerated -Increase Levemir to 14 units twice a day. -Insulin sliding scale. -Hemoglobin A1c. -Formal wound care consultation obtained. Duoderm to coccyx every 3 days and when necessary. Encourage side-lying position. -On multiple requests the patient continues to decline swallow evaluation despite being explained the risks of not undergoing this evaluation in the setting of recent CVA. She is well aware of the risks of this and continues to refuse a formal swallow evaluation. I spoke with the patients daughter also works at [employer] who states that she is aware of this situation and the patient currently makes her own healthcare decisions. -CBC/BEP in AM Diet: Regular diet nectar thick liquids, regular solids DVT prophylaxis: Lovenox, ALPS CODE STATUS: DNR/DNI Problem List: 1. Shortness of breath 2. Diabetes 3. Aspiration pneumonia Pain Ratin Pain Location: Bilaterral Knee pain Pain Goal: Remain pain free Pain Plan: Ibuprofen Tomorrow's Labs & Rationales: CBC: monitor WBC in the setting of acute illness BEP: Monitor Electrolytes in the setting of electrolyte derangements
[2017-11-19 07:16] VITALS: BP 132/56
[2017-11-19 08:10] LABS: ABSOLUTE BASOPHIL COUNT 0 /CUMM (0.0-0.2); ABSOLUTE EOSINOPHIL COUNT 0 /CUMM (0.0-0.7); ABSOLUTE MONOCYTE COUNT 0.5 /CUMM (0.10-0.60); RBC DISTRIBUTION WIDTH 15.4 % (11.5-14.5)
[2017-11-19 08:24] LABS: ABSOLUTE GRANULOCYTE CT 13.9 /CUMM (1.4-6.5); ABSOLUTE LYMPH COUNT 1.6 /CUMM (1.2-3.4); BASOPHIL % 0.2 % (0.0-2.0); EOSINOPHIL % 0.1 % (0-5); MEAN CORPUSCULAR HGB 29.2 PG (27.0-31.0); MEAN CORPUSCULAR VOLUME 88.3 FL (81.0-99.0); MEAN PLATELET VOLUME 8.6 FL (7.4-10.4); PLATELET COUNT 184 /CUMM (130-400); RED BLOOD CELL CT 3.11 /CUMM (4.20-5.40)
[2017-11-19 08:29] LABS: HEMATOCRIT 27.4 % (37-47)
[2017-11-19 09:59] LABS: GRANULOCYTE % 86.8 % (42.2-75.2)
--- NOTE | 2017-11-19 10:31 | PN- Att Addend ---
See Addendum Attending Addendum Attending Brief Note Patient seen and examined, overall doing better. Breathing has improved. Oxygen requirement has improved. Vital Signs Date Time Temp Pulse Resp B/P B/P Pulse O2 O2 Flow FiO2 Mean Ox Delivery Rate 11/19 0716 99.8 98 20 132/56 93 11/19 0321 99.8 100 20 128/54 93 11/19 0252 Nasal 5.0L Cannula 11/19 0148 99.4 115 20 94 Nasal 5.0L Cannula 11/19 0038 100.6 11/18 2351 95 Nasal 5.0L Cannula 11/18 2334 100.6 116 18 125/56 95 Nasal 6.0L Cannula 11/18 2301 91 Nasal 4.0L Cannula on exam; aox3, nad. cv; s1,s2 rrr resp; decreased bs at right base. abd; soft, nt, bs+ ext; no edema Laboratory Tests 11/19 11/19 0610 0500 Chemistry Sodium (137 - 145 mmol/L) 142 Potassium (3.5 - 5.1 mmol/L) 4.1 Chloride (98 - 107 mmol/L) 107 Carbon Dioxide (22 - 30 mmol/L) 21 L Anion Gap (5 - 16) 14 BUN (7 - 17 mg/dL) 27 H Creatinine (0.5 - 1.0 mg/dL) 0.7 Estimated GFR (>60 ml/min) > 60 BUN/Creatinine Ratio (7 - 25 %) 38.6 H Lactic Acid (0.7 - 2.1 mmol/L) 1.8 Hematology CBC w Diff NO MAN DIFF REQ WBC (4.8 - 10.8 /CUMM) 16.0 H RBC (4.20 - 5.40 /CUMM) 3.11 L Hgb (12.0 - 16.0 G/DL) 9.1 L Hct (37 - 47 %) 27.4 L MCV (81.0 - 99.0 FL) 88.3 MCH (27.0 - 31.0 PG) 29.2 MCHC (33.0 - 37.0 G/DL) 33.0 RDW (11.5 - 14.5 %) 15.4 H Plt Count (130 - 400 /CUMM) 184 MPV (7.4 - 10.4 FL) 8.6 Gran % (42.2 - 75.2 %) 86.8 H Lymphocytes % (20.5 - 51.1 %) 9.9 L Monocytes % (1.7 - 9.3 %) 3.0 Eosinophils % (0 - 5 %) 0.1 Basophils % (0.0 - 2.0 %) 0.2 Absolute Granulocytes (1.4 - 6.5 /CUMM) 13.9 H Absolute Lymphocytes (1.2 - 3.4 /CUMM) 1.6 Absolute Monocytes (0.10 - 0.60 /CUMM) 0.5 Absolute Eosinophils (0.0 - 0.7 /CUMM) 0 Absolute Basophils (0.0 - 0.2 /CUMM) 0 11/19 11/19 0232 0203 Chemistry Lactic Acid (0.7 - 2.1 mmol/L) 3.0 H Urines Urine Color (YEL,AMB,STR) ORANG H Urine Clarity (CLEAR) CLDY H Urine pH (5.0 - 8.0) 5.0 Ur Specific [place] (1.001 - 1.035) 1.025 Urine Protein (NEG,<30 MG/DL) 100 H Urine Ketones (NEG) TRACE H Urine Nitrite (NEG) POS H Urine Bilirubin (NEG) NEG Urine Urobilinogen (0.1 - 1.0 EU/dl) 1.0 Ur Leukocyte Esterase (NEG) LARGE H Ur Microscopic SEDIMENT EXAMINED Urine RBC (0 - 5 /HPF) 3-5 Urine WBC (0 - 2 /HPF) PACKD H Ur Epithelial Cells (NONE,FEW) MOD H Urine Bacteria (NEG/NONE) MANY H Urine Hemoglobin (NEG) SMALL H Urine Glucose (N MG/DL) NEG 11/18 2323 Chemistry Sodium (137 - 145 mmol/L) 141 Potassium (3.5 - 5.1 mmol/L) 4.3 Chloride (98 - 107 mmol/L) 104 Carbon Dioxide (22 - 30 mmol/L) 20 L Anion Gap (5 - 16) 17 H BUN (7 - 17 mg/dL) 31 H Creatinine (0.5 - 1.0 mg/dL) 0.8 Estimated GFR (>60 ml/min) > 60 BUN/Creatinine Ratio (7 - 25 %) 38.8 H Glucose (65 - 99 mg/dL) 206 H Lactic Acid (0.7 - 2.1 mmol/L) 2.1 Calcium (8.4 - 10.2 mg/dL) 9.6 Total Bilirubin (0.2 - 1.3 mg/dL) 0.6 AST (14 - 36 U/L) 17 ALT (9 - 52 U/L) 18 Alkaline Phosphatase (<127 U/L) 78 Troponin I (< 0.11 ng/ml) < 0.01 Total Protein (6.3 - 8.2 g/dL) 7.6 Albumin (3.5 - 5.0 g/dL) 4.0 Globulin (1.9 - 4.2 gm/dL) 3.6 Albumin/Globulin Ratio (1.1 - 2.2 %) 1.1 Hematology CBC w Diff NO MAN DIFF REQ WBC (4.8 - 10.8 /CUMM) 15.0 H RBC (4.20 - 5.40 /CUMM) 4.04 L Hgb (12.0 - 16.0 G/DL) 11.2 L Hct (37 - 47 %) 35.5 L MCV (81.0 - 99.0 FL) 87.8 MCH (27.0 - 31.0 PG) 27.8 MCHC (33.0 - 37.0 G/DL) 31.7 L RDW (11.5 - 14.5 %) 15.5 H Plt Count (130 - 400 /CUMM) 237 MPV (7.4 - 10.4 FL) 8.2 Gran % (42.2 - 75.2 %) 83.8 H Lymphocytes % (20.5 - 51.1 %) 12.4 L Monocytes % (1.7 - 9.3 %) 3.2 Eosinophils % (0 - 5 %) 0.3 Basophils % (0.0 - 2.0 %) 0.3 Absolute Granulocytes (1.4 - 6.5 /CUMM) 12.6 H Absolute Lymphocytes (1.2 - 3.4 /CUMM) 1.9 Absolute Monocytes (0.10 - 0.60 /CUMM) 0.5 Absolute Eosinophils (0.0 - 0.7 /CUMM) 0.1 Absolute Basophils (0.0 - 0.2 /CUMM) 0 A/P; 67 y/o F with pmh sig for dysphasia, CVA/TIAs with residual right-sided weakness, depression, anxiety, COPD, OA, insulin-dependent diabetes mellitus, HLD, chronic pressure ulcers on her buttocks and coccyx, chronic neck/back pain, who was drinking for colonoscopy when she vomited and aspirated. Patient admitted with acute respiratory failure, sepsis secondary to aspiration pneumonia. Oxygen requirement is improving. Noted slight increase in white count. We'll continue Unasyn and follow-up on the cultures. Continue TRC nebs. Lactate has normalized. Continue Levemir and sliding scale insulin for diabetes. Please increase Levemir to twice a day dosing. Patient does take 28 units of Lantus at alf. Resume other home meds. DVT px: Lovenox.
[2017-11-19 15:24] VITALS: BP 100/48
[2017-11-19 21:16] VITALS: BP 122/60
[2017-11-20 07:12] VITALS: BP 120/62
[2017-11-20 08:36] LABS: ABSOLUTE BASOPHIL COUNT 0 /CUMM (0.0-0.2); ABSOLUTE EOSINOPHIL COUNT 0.1 /CUMM (0.0-0.7); ABSOLUTE GRANULOCYTE CT 7.7 /CUMM (1.4-6.5); ABSOLUTE LYMPH COUNT 2.2 /CUMM (1.2-3.4); ABSOLUTE MONOCYTE COUNT 0.5 /CUMM (0.10-0.60); BASOPHIL % 0.2 % (0.0-2.0); EOSINOPHIL % 0.9 % (0-5); GRANULOCYTE % 73.8 % (42.2-75.2); HEMATOCRIT 27.5 % (37-47); MEAN CORPUSCULAR HGB 28.6 PG (27.0-31.0); MEAN CORPUSCULAR HGB CONC 32.4 G/DL (33.0-37.0); MEAN CORPUSCULAR VOLUME 88.3 FL (81.0-99.0); MEAN PLATELET VOLUME 8.3 FL (7.4-10.4); PLATELET COUNT 176 /CUMM (130-400); RBC DISTRIBUTION WIDTH 15.5 % (11.5-14.5); RED BLOOD CELL CT 3.12 /CUMM (4.20-5.40); WHITE BLOOD CELL COUNT 10.4 /CUMM (4.8-10.8)
--- NOTE | 2017-11-20 09:04 | PN- Housestaff ---
See Addendum Subjective Follow-up For: Asp PNA Subjective: No overnight events. She feels improved. Her breathing is better, no CP, fever, night sweats, or chills. She is complaining of constipation. Review of Systems Constitutional: Reports: no symptoms. EENTM: Reports: no symptoms. Cardiovascular: Reports: no symptoms. Respiratory: Reports: see HPI. Gastrointestinal: Reports: see HPI. Genitourinary: Reports: no symptoms. Musculoskeletal: Reports: no symptoms. Skin: Reports: no symptoms. Neurological/Psychological: Reports: no symptoms. Hematologic/Endocrine: Reports: no symptoms. Immunologic/Allergic: Reports: no symptoms. Objective Last 24 Hrs of Vital Signs/I&O Vital Signs Date Time Temp Pulse Resp B/P B/P Pulse O2 O2 Flow FiO2 Mean Ox Delivery Rate 11/20 0712 97.6 59 18 120/62 95 11/20 0000 95 Nasal 2.5L Cannula 11/19 2116 97.9 63 17 122/60 95 Nasal 2.5L Cannula 11/19 2030 93 Nasal 2.5L Cannula 11/19 1600 Nasal 2.0L Cannula 11/19 1546 77 100/48 11/19 1524 99.1 77 18 100/48 93 11/19 1043 96 Nasal 3.0L Cannula 11/19 1039 Nasal 3.0L Cannula Intake & Output 11/20 1600 11/20 0800 11/20 0000 Intake Total 240 600 Output Total Balance 240 600 Intake, IV 120 120 Intake, Oral 120 480 Number 0 Bowel Movements Physical Exam General Appearance: Alert, Oriented X3, Cooperative, No Acute Distress Cardiovascular: Regular Rate, Normal S1, Normal S2 Lungs: crackles at base Abdomen: Normal Bowel Sounds, Soft, No Tenderness Current Medications: Current Medications Sig/Sravani Start time Last Medication Dose Route Stop Time Status Admin Albuterol Sulfate 3 ML Q4P PRN 11/19 1100 AC INH Ampicillin Sodium/ 3,000 MG Q6 11/19 0600 AC 11/20 Sulbactam Sodium IV 0534 Sodium Chloride 100 ML Atorvastatin Calcium 40 MG 1700 11/19 1700 AC 11/19 PO 1646 Citalopram 20 MG DAILY 11/19 1000 AC 11/19 Hydrobromide PO 1059 Dipyridamole/Aspirin 1 CAP BID 11/19 1000 AC 11/19 PO 2200 Enoxaparin Sodium 40 MG DAILY 11/19 1000 AC 11/19 SC 1058 Ibuprofen 600 MG ONCE ONE 11/19 1630 DC 11/19 PO 11/19 1631 1646 Ibuprofen 200 MG Q6P PRN 11/19 1330 AC 11/19 PO 1448 Insulin Aspart 0 TIDAC 11/19 0800 AC 11/19 SC 1659 Insulin Detemir 14 UNITS BID 11/19 2200 AC 11/19 SC 2203 Insulin Detemir 14 UNITS ONCE ONE 11/19 1130 DC 11/19 SC 11/19 1131 1159 Insulin Detemir 14 UNITS DAILY 11/19 1000 DC SC Ipratropium [place] 2.5 ML Q6 PRN 11/19 0245 DC INH Isosorbide 60 MG DAILY 11/19 1330 AC Mononitrate PO Mirabegron 25 MG DAILY 11/19 1000 AC 11/19 PO 1059 Patient Medication 1 ED ONE ONE 11/19 1345 DC Teaching ED 11/19 1346 Polyethylene Glycol 17 GM DAILY 11/20 1000 UNVr PO Pregabalin 100 MG TID 11/19 1000 AC 11/19 PO 2200 Senna/Docusate Sodium 1 TAB BID 11/20 1000 UNVr PO Tizanidine HCl 2 MG DAILY 11/19 1000 AC 11/19 PO 1059 Vitamin A/Vitamin D 1 LIZBETH BID 11/19 0338 AC 11/19 TOP 2206 Last 24 Hrs of Lab/Jameson Results Last 24 Hrs of Labs/Mics: Laboratory Tests 11/20/17 0630: Anion Gap 9, Estimated GFR > 60, BUN/Creatinine Ratio 30.0 H, CBC w Diff NO MAN DIFF REQ, RBC 3.12 L, MCV 88.3, MCH 28.6, MCHC 32.4 L, RDW 15.5 H, MPV 8.3, Gran % 73.8, Lymphocytes % 20.7, Monocytes % 4.4, Eosinophils % 0.9, Basophils % 0.2, Absolute Granulocytes 7.7 H, Absolute Lymphocytes 2.2, Absolute Monocytes 0.5, Absolute Eosinophils 0.1, Absolute Basophils 0 Assessment/Plan Assessment: Ms Roberts is a 67-year-old female with an extensive past medical history significant for dysphasia, CVA/TIAs with residual right-sided weakness, depression, anxiety, COPD, OA, insulin-dependent diabetes mellitus, HLD, chronic pressure ulcers on her buttocks and coccyx, chronic neck/back pain, who was brought into the [facility] ED by ambulance from [facility] for suspected aspiration after drinking MoviPrep for outpatient colonoscopy scheduled for 11/19/2017. She met criteria for severe sepsis with 3 SIRS criteria: Tachycardia, fever, leukocytosis. Vital signs on presentation: T 100.6, P116, RR 18, BP 125/56, 91% on 4 L O2 nasal cannula. Pertinent labs on admission: WBC 15, H&H 11.2/35.5, lactic acid 2.1, BUN 31, glucose 206 Problem list #Severe sepsis secondary to aspiration pneumonia #Acute hypoxic respiratory failure secondary to pneumonia #Non healing wounds to buttocks #History of diabetes #Swallowing abnormalities #Chronic medical problems Plan -Continue admission on general medicine -Aspiration precautions -IV Unasyn, follow-up on cultures and sensitivities. -TRC/nebs -Incentive spirometer. -Taper oxygen as tolerated - Levemir to 14 units twice a day. -Insulin sliding scale. -Hemoglobin A1c. -Formal wound care consultation obtained. Duoderm to coccyx every 3 days and when necessary. Encourage side-lying position. -On multiple requests the patient continues to decline swallow evaluation despite being explained the risks of not undergoing this evaluation in the setting of recent CVA. She is well aware of the risks of this and continues to refuse a formal swallow evaluation. I spoke with the patients daughter also works at [employer] who states that she is aware of this situation and the patient currently makes her own healthcare decisions. -CBC/BEP in AM -She is feeling constipated this morning, will prescribe some osmotic agents. Otherwise, improved on unasyn, will continue, improved white count and no fevers. Diet: Regular diet nectar thick liquids, regular solids DVT prophylaxis: Lovenox, ALPS CODE STATUS: DNR/DNI Problem List: 1. Aspiration pneumonia Pain Ratin Pain Location: no pain Pain Goal: Remain pain free Pain Plan: see a/p Tomorrow's Labs & Rationales: cbc, bep
[2017-11-20 14:00] VITALS: BP 110/54
[2017-11-20 22:54] VITALS: BP 128/67
[2017-11-21 07:06] VITALS: BP 145/68
[2017-11-21 08:13] LABS: ABSOLUTE BASOPHIL COUNT 0 /CUMM (0.0-0.2); ABSOLUTE EOSINOPHIL COUNT 0.1 /CUMM (0.0-0.7); ABSOLUTE GRANULOCYTE CT 5.8 /CUMM (1.4-6.5); ABSOLUTE LYMPH COUNT 2.5 /CUMM (1.2-3.4); ABSOLUTE MONOCYTE COUNT 0.4 /CUMM (0.10-0.60); BASOPHIL % 0.3 % (0.0-2.0); EOSINOPHIL % 1.6 % (0-5); GRANULOCYTE % 65.3 % (42.2-75.2); HEMATOCRIT 27.4 % (37-47); MEAN CORPUSCULAR HGB 28.6 PG (27.0-31.0); MEAN CORPUSCULAR HGB CONC 32.5 G/DL (33.0-37.0); MEAN CORPUSCULAR VOLUME 87.9 FL (81.0-99.0); MEAN PLATELET VOLUME 8.3 FL (7.4-10.4); PLATELET COUNT 190 /CUMM (130-400); RBC DISTRIBUTION WIDTH 15.3 % (11.5-14.5); RED BLOOD CELL CT 3.11 /CUMM (4.20-5.40); WHITE BLOOD CELL COUNT 8.8 /CUMM (4.8-10.8)
--- NOTE | 2017-11-21 08:30 | PN- Housestaff ---
See Addendum Subjective Follow-up For: Aspiration pneumonia Subjective: Seen and examined Patient reports still having cough with yellowish white phlegm production. Slept well. Had 2 bowel movements yesterday. Reportedly having diffuse abdominal pain for long time, not improved/worsened. Underwent ultrasound recently, unaware of the results. Review of Systems Constitutional: Reports: see HPI. Objective Last 24 Hrs of Vital Signs/I&O Vital Signs Date Time Temp Pulse Resp B/P B/P Pulse O2 O2 Flow FiO2 Mean Ox Delivery Rate 11/21 705 97.6 81 20 145/68 96 Room Air 11/21 0000 Nasal 0.5L Cannula 11/20 2254 97.8 94 20 128/67 99 Nasal 1.0L Cannula 11/20 1600 93 Nasal 1.0L Cannula 11/20 1400 99.0 84 18 110/54 92 Nasal 2.5L Cannula 11/20 1043 69 160/77 Intake & Output 11/21 1600 11/21 0800 11/21 0000 Intake Total 240 2130 Output Total Balance 240 2130 Intake, IV 130 Intake, Oral 240 2000 Number 1 Bowel Movements Physical Exam General Appearance: Alert, Oriented X3, Cooperative, Mild Distress Skin: No Rashes Sepsis Skin Exam (color): Normal for Ethnicity HEENT: Atraumatic, PERRLA Neck: Supple Cardiovascular: Normal S1, Normal S2 Lungs: Normal Air Movement, decreased breath sounds at the right lung base. normal breath sounds throughout otherwise Abdomen: Normal Bowel Sounds, Soft, No Tenderness Current Medications: Current Medications Sig/Sravani Start time Last Medication Dose Route Stop Time Status Admin Albuterol Sulfate 3 ML Q4P PRN 11/19 1100 AC INH Ampicillin Sodium/ 3,000 MG Q6 11/19 0600 AC 11/21 Sulbactam Sodium IV 0537 Sodium Chloride 100 ML Atorvastatin Calcium 40 MG 1700 11/19 1700 AC 11/20 PO 1700 Citalopram 20 MG DAILY 11/19 1000 AC 11/20 Hydrobromide PO 1041 Dipyridamole/Aspirin 1 CAP BID 11/19 1000 AC 11/20 PO 2150 Enoxaparin Sodium 40 MG DAILY 11/19 1000 AC 11/20 SC 1039 Ibuprofen 600 MG ONCE ONE 11/20 2200 DC 11/20 PO 11/20 2201 2212 Ibuprofen 200 MG Q6P PRN 11/19 1330 AC 11/19 PO 1448 Insulin Aspart 0 TIDAC 11/19 0800 AC 11/20 SC 1701 Insulin Detemir 14 UNITS BID 11/19 2200 AC 11/20 SC 2151 Isosorbide 60 MG DAILY 11/19 1330 AC 11/20 Mononitrate PO 1043 Mirabegron 25 MG DAILY 11/19 1000 AC 11/20 PO 1040 Polyethylene Glycol 17 GM DAILY 11/20 1000 AC 11/20 PO 1051 Pregabalin 100 MG TID 11/19 1000 AC 11/20 PO 2152 Senna/Docusate Sodium 1 TAB BID 11/20 1000 AC 11/20 PO 2152 Tizanidine HCl 2 MG DAILY 11/19 1000 AC 11/20 PO 1041 Vitamin A/Vitamin D 1 LIZBETH BID 11/19 0338 AC 11/20 TOP 2150 Last 24 Hrs of Lab/Jameson Results Last 24 Hrs of Labs/Mics: Laboratory Tests 11/21/17 0620: Anion Gap 12, Estimated GFR > 60, BUN/Creatinine Ratio 27.1 H, CBC w Diff NO MAN DIFF REQ, RBC 3.11 L, MCV 87.9, MCH 28.6, MCHC 32.5 L, RDW 15.3 H, MPV 8.3, Gran % 65.3, Lymphocytes % 27.8, Monocytes % 5.0, Eosinophils % 1.6, Basophils % 0.3, Absolute Granulocytes 5.8, Absolute Lymphocytes 2.5, Absolute Monocytes 0.4, Absolute Eosinophils 0.1, Absolute Basophils 0 Assessment/Plan Assessment: Ms Roberts is a 67-year-old female with an extensive past medical history significant for dysphasia, CVA/TIAs with residual right-sided weakness, depression, anxiety, COPD, OA, insulin-dependent diabetes mellitus, HLD, chronic pressure ulcers on her buttocks and coccyx, chronic neck/back pain, who was brought into the [facility] ED by ambulance from [facility] for suspected aspiration after drinking MoviPrep for outpatient colonoscopy scheduled for 11/19/2017. At admission - met criteria for severe sepsis with 3 SIRS criteria: Tachycardia , fever, leukocytosis. Pertinent labs on admission: WBC 15, H&H 11.2/35.5, lactic acid 2.1, BUN 31, glucose 206 Problem list #Severe sepsis secondary to aspiration pneumonia #Acute hypoxic respiratory failure secondary to pneumonia #Non healing wounds to buttocks #History of diabetes #Swallowing abnormalities #Chronic medical problems Plan * Aspiration precautions * On IV unasyn - day 3, can transition to oral augmentin. * No growth from cultures till date * Incentive spirometer. * TRC/nebs * continue Levemir to 14 units twice a day and sliding scale for IDDM * Formal wound care consultation obtained. Duoderm to coccyx every 3 days and when necessary. Encourage side-lying position. * On multiple requests the patient continues to decline swallow evaluation despite being explained the risks of not undergoing this evaluation in the setting of recent CVA. She is well aware of the risks of this and continues to refuse a formal swallow evaluation. * She is feeling constipated this morning, will prescribe some osmotic agents. Diet: Regular diet nectar thick liquids, regular solids DVT prophylaxis: ERIN Pandey CODE STATUS: DNR/DNI Problem List: 1. Aspiration pneumonia 2. CVA (cerebral infarction) 3. Diabetes 4. Severe sepsis Pain Ratin Pain Location: n/a Pain Goal: Pain 4 or less Pain Plan: tylenol prn Tomorrow's Labs & Rationales: none
--- NOTE | 2017-11-21 08:35 | Patient Discharge Instructions ---
Discharge Instructions General Discharge Information You were seen/treated for: Aspiration pneumonia Special Instructions: Please follow up with your PCP in a week. Please have your primary care physician conduct a thorough medication reconciliation especially given the fact that you are on multiple medications Please follow up with speech pathologist in a week Activity Activity Self Limited: Yes Acute Coronary Syndrome Inclusion Criteria At DC or during hospital stay patient has or had the following: ACS DIAGNOSIS No Discharge Core Measures Meds if any: Prescribed or Continued at Discharge Meds if any: NOT Prescribed or Continued at Discharge Congestive Heart Failure Inclusion Criteria At DC or during hospital stay patient has or had the following: CHF DIAGNOSIS No Discharge Core Measures Meds if any: Prescribed or Continued at Discharge Meds if any: NOT Prescribed or Continued at Discharge Cerebrovascular accident Inclusion Criteria At DC or during hospital stay patient has or had the following: CVA/TIA Diagnosis No Discharge Core Measures Meds if any: Prescribed or Continued at Discharge Meds if any: NOT Prescribed or Continued at Discharge Venous thromboembolism Inclusion Criteria VTE Diagnosis No VTE Type NONE VTE Confirmed by (Test) NONE Discharge Core Measures - Per Current guidelines, there needs to be overlap - treatment for the first 5 days of Warfarin therapy. - If discharged on Warfarin prior to 5 days of - overlap therapy, the patient will need to be - assessed for post discharge needs including - *Post discharge parental anticoagulation - *Warfarin and/or parental anticoagulation education - *Follow up date to check INR post discharge At least 5 days overlap therapy as Inpatient No Meds if any: Prescribed or Continued at Discharge Note: Overlap Therapy is Warfarin and Anticoagulant Meds if any: NOT Prescribed or Continued at Discharge
[2017-11-21 14:37] VITALS: BP 150/72
[2017-11-21 21:14] VITALS: BP 116/72
[2017-11-22 05:56] VITALS: BP 118/68
--- NOTE | 2017-11-22 07:18 | PN- Housestaff ---
See Addendum Subjective Follow-up For: Aspiration PNA Subjective: Ms. Roberts was seen and examined this morning. She is resting comfortably in bed. Denies any issues overnight. States that despite multiple laxatives she has been still unable to have a bowel movement. She states that she finds very difficult to over bedpan. She denies any fever, chills, nausea, vomiting. No cough or SOB. States that she is tolerating PO intake well and likes the food here. Review of Systems Constitutional: Reports: see HPI. Objective Last 24 Hrs of Vital Signs/I&O Vital Signs Date Time Temp Pulse Resp B/P B/P Pulse O2 O2 Flow FiO2 Mean Ox Delivery Rate 11/22 1027 97.1 75 19 138/78 95 Nasal Cannula 11/22 0848 97.9 64 22 118/68 11/22 0556 97.9 64 22 118/68 94 Room Air 11/21 2114 98.2 69 16 116/72 96 Room Air 11/21 1437 97.5 85 20 150/72 94 Room Air Intake & Output 11/22 1600 11/22 0800 11/22 0000 Intake Total 250 250 Output Total Balance 250 250 Intake, IV 10 10 Intake, Oral 240 240 Number 2 Bowel Movements Physical Exam General Appearance: Alert, Oriented X3, Cooperative Skin Temp/Moisture Exam: Warm/Dry Sepsis Skin Exam (color): Normal for Ethnicity HEENT: Mucous Membr. moist/pink Cardiovascular: Normal S1, Normal S2 Lungs: Normal Air Movement, Diminished breath Sounds Abdomen: Soft, No Tenderness, Distended, Hyperactive BS. Neurological: Normal Speech Extremities: No Edema, Residual weakness noted on the right. RUE: 3/5. RLE: 3 Current Medications: Current Medications Sig/Sravani Start time Last Medication Dose Route Stop Time Status Admin Albuterol Sulfate 3 ML Q4P PRN 11/19 1100 AC INH Amoxicillin/ 875 MG Q12 11/21 2200 AC 11/22 Clavulanate Potassium PO 0908 Ampicillin Sodium/ 3,000 MG Q6 11/19 0600 DC 11/21 Sulbactam Sodium IV 1257 Sodium Chloride 100 ML Atorvastatin Calcium 40 MG 1700 11/19 1700 AC 04 PO 1623 Citalopram 20 MG DAILY 11/19 1000 AC 11/22 Hydrobromide PO 0848 Dipyridamole/Aspirin 1 CAP BID 11/19 1000 AC 11/22 PO 0848 Docusate Sodium 100 MG BID PRN 11/22 1000 AC PO Enoxaparin Sodium 40 MG DAILY 11/19 1000 AC 11/22 SC 0847 Ibuprofen 200 MG Q6P PRN 11/19 1330 AC 11/22 PO 0623 Insulin Aspart 0 TIDAC 11/19 0800 AC 11/21 SC 1624 Insulin Detemir 14 UNITS BID 11/19 2200 AC 11/22 SC 0845 Isosorbide 60 MG DAILY 11/19 1330 AC 11/22 Mononitrate PO 0848 Magnesium Hydroxide 30 ML ONE PRN 11/22 1000 AC PO Mirabegron 25 MG DAILY 11/19 1000 AC 11/22 PO 0846 Patient Medication 1 ED ONE ONE 11/22 1015 DC Teaching ED 11/22 1016 Polyethylene Glycol 17 GM DAILY 11/20 1000 AC 11/21 PO 0947 Pregabalin 100 MG TID 11/19 1000 AC 11/22 PO 0908 Senna/Docusate Sodium 1 TAB BID 11/20 1000 AC 11/22 PO 0847 Tizanidine HCl 2 MG DAILY 11/19 1000 AC 11/22 PO 0847 Vitamin A/Vitamin D 1 LIZBETH BID 11/19 0338 AC 11/22 TOP 0849 Assessment/Plan Assessment: Ms Roberts is a 67-year-old female with an extensive past medical history significant for dysphasia, CVA/TIAs with residual right-sided weakness, depression, anxiety, COPD, OA, insulin-dependent diabetes mellitus, HLD, chronic pressure ulcers on her buttocks and coccyx, chronic neck/back pain, who was brought into the [facility] ED by ambulance from [facility] for suspected aspiration after drinking MoviPrep for outpatient colonoscopy scheduled for 11/19/2017. At admission - met criteria for severe sepsis with 3 SIRS criteria: Tachycardia , fever, leukocytosis. Pertinent labs on admission: WBC 15, H&H 11.2/35.5, lactic acid 2.1, BUN 31, glucose 206 Problem list #Severe sepsis secondary to aspiration pneumonia #Acute hypoxic respiratory failure secondary to pneumonia #Non healing wounds to buttocks #History of diabetes #Swallowing abnormalities #Chronic medical problems Plan * Aspiration precautions * On IV unasyn - day 3, Transitioned to Oral Augmentin. * No growth from respiratory cultures till date * Incentive spirometer. * TRC/nebs * continue Levemir to 14 units twice a day and sliding scale for IDDM. FS, 197, 224, 233 * Formal wound care consultation obtained. Duoderm to coccyx every 3 days and when necessary. Encourage side-lying position. * On multiple requests the patient continues to decline swallow evaluation despite being explained the risks of not undergoing this evaluation in the setting of recent CVA. She is well aware of the risks of this and continues to refuse a formal swallow evaluation. * She is feeling constipated this morning: PRN: Milk of Magnesium, Colace, Senna , Miralax. * May consider suppository/enema if still no relief. Diet: Regular diet nectar thick liquids, regular solids DVT prophylaxis: Lovepeacex ALPS CODE STATUS: DNR/DNI Problem List: 1. Aspiration pneumonia Pain Ratin Pain Location: No pain Pain Goal: Remain pain free Pain Plan: Tylenol/Tramadol PRN Tomorrow's Labs & Rationales: No Labs. Possible DC
--- NOTE | 2017-11-22 07:20 | Discharge Summary ---
Visit Information Visit Dates Admission Date: 11/19/17 Discharge Date: 11/22/2017 Hospital Course Course Attending Physician: Josselin Lemus MD Primary Care Physician: Grant Powell MD Hospital Course: Ms Roberts is a 67-year-old female with an extensive past medical history significant for dysphasia, CVA/TIAs with residual right-sided weakness, depression, anxiety, COPD, OA, insulin-dependent diabetes mellitus, HLD, chronic pressure ulcers on her buttocks and coccyx, chronic neck/back pain, who was brought into the [facility] ED by ambulance from [facility] for suspected aspiration after drinking MoviPrep for outpatient colonoscopy scheduled for 11/19/2017. At the time of presentation, she met criteria for severe sepsis with 3 SIRS criteria: Tachycardia, fever, leukocytosis. Vital signs on presentation: T 100.6, P116, RR 18, BP 125/56, 91% on 4 L O2 nasal cannula. Pertinent labs on admission: WBC 15, H&H 11.2/35.5, lactic acid 2.1, BUN 31, glucose 206 She was admitted to the Gen. medical service and below is a summary of the care she received under us. Problem list: #Severe sepsis secondary to aspiration pneumonia #Acute hypoxic respiratory failure secondary to pneumonia #Non healing wounds to buttocks #History of diabetes #Swallowing abnormalities #Constipation #Chronic medical problems Patient was started on IV antibiotics [Unasyn] and continued on this medication until 11/21/2017. She appeared to respond well. Her oxygen requirement decreased and were tapered as tolerated. She was subsequently converted to oral antibiotics on 11/21/2017. She was discharged to complete a total of 7 day course of antibiotics. She was also hydrated with IV fluids. Aspiration precautions were maintained. She was encouraged to use an incentive spirometer. Blood sugars were frequently checked. In addition to sliding scale coverage, Levemir was initiated 14 units twice a day. Hemoglobin a1C was 7.6. Prior to discharge the patient did complain of some constipation. She was given multiple laxatives for symptomatic relief. A formal wound care consultation was obtained. The recommended Duoderm to coccyx every 3 days and when necessary. She was also Encouraged side-lying position. Patient was continued on her outpatient medications. Diet: Regular diet nectar thick liquids, regular solids. On multiple requests the patient declined a swallow evaluation despite being explained the risks of not undergoing this evaluation in the setting of recent CVA. She is well aware of the risks of this and continues to refuse a formal swallow evaluation. I spoke with the patients daughter (also works at [employer]) she states that she is aware of this situation and the patient currently makes her own healthcare decisions. DVT prophylaxis: She was maintained on Lovenox and ALP S. CODE STATUS: She was a DNR/DNI of the course of the admission. Allergies: Coded Allergies: NO KNOWN ALLERGIES (UNKNOWN 05/04/17) Pertinent Lab Results: SERVICE DATE: 11/18/17 EXAM TYPE: RAD - XRY-CHEST XRAY, SINGLE VIEW EXAMINATION:\H\ \N\XR CHEST CLINICAL INFORMATION: Dyspnea. Cough. COMPARISON: Chest x-ray 08/09/2017 TECHNIQUE: Frontal view of the chest was obtained. 11:13 PM FINDINGS: Surgical clips over the right side of the chest. Lung volume is low. There is a patchy airspace opacity at the right lung base suspicious for infiltrate. This is new since the radiograph 08/09/2017. Left lung remains clear. There is no significant central pulmonary vascular congestion. There is no pleural effusion. The cardiac and mediastinal contours are unchanged. IMPRESSION: Right lower lobe parenchymal infiltrate. DICTATED BY: Ranjit John MD Disposition Summary Disposition Principal Diagnosis: #Severe sepsis secondary to aspiration pneumonia #Acute hypoxic respiratory failure secondary to pneumonia Additional Diagnosis: #Non healing wounds to buttocks #History of diabetes #Swallowing abnormalities #Chronic medical problems Discharge Disposition: SNF Discharge Instructions General Discharge Information Code Status: Do Not Resucitate/Intubat Patient's Diet: Heart Healthy/Regular With [place] Thick Liquids. Patient's Activity: As Tolerated Follow-Up Instructions/Appts: Please follow up with your PCP in a week. Take antibiotics as prescribed. Please follow up with speech pathologist in a week Medications at Discharge Discharge Medications: Stop taking the following medications: Citalopram Hydrobromide (Celexa) 10 MG TABLET ORAL DAILY Qty = 30 Pregabalin (Lyrica) 75 MG CAPSULE ORAL EVERY 8 HOURS Qty = 30 Bupropion HCl (Bupropion XL) 150 MG TAB.ER.24H ORAL Every night Qty = 30 Insulin Glargine,Hum.rec.anlog (Lantus Solostar) 100 UNIT/ML (3 ML) INSULN.PEN Inject into fatty tissue Every Morning Qty = 30 Continue taking these medications: Lorazepam (Ativan) 0.5 MG TABLET 0.5 Tablet ORAL EVERY 8 HOURS NEEDED as needed for ANXIETY Qty = 30 Comments: Last Taken:NOT GIVEN THIS ADMISSION Time: Estradiol (Estring) 7.5 MCG/24 HOUR VAG.RING 2 Milligram VAGINALLY Qty = 30 Comments: NOT GIVEN THIS ADMISSION Tramadol HCl (Tramadol HCl) 50 MG TABLET 1 Tablet ORAL 2 x Daily as needed as needed for PAIN Qty = 30 Comments: NOT TAKEN IN HOSPITAL Tizanidine HCl (Zanaflex) 2 MG CAPSULE 1 Capsule ORAL TWICE DAILY Qty = 30 Comments: Last Taken: 11/22/17 Time: 9 AM Citalopram Hydrobromide (Celexa) 20 MG TABLET 1 Tablet ORAL DAILY Qty = 30 Comments: Last Taken: 11/22/17 Time: 9:00 AM Diphenhydramine HCl (Banophen) 25 MG CAPSULE 1 Tablet ORAL EVERY SIX HOURS as needed for ITCHING Qty = 30 Comments: NOT GIVEN THIS ADMISSION Fenofibrate (Tricor) 48 MG TABLET 1 Tablet ORAL 1200 Qty = 30 Comments: NOT TAKEN IN HOSPITAL Acetaminophen (Acetaminophen) 325 MG CAPSULE 2 Tablet ORAL EVERY 4 HOURS NEEDED as needed for PAIN Qty = 30 Comments: Last Taken: NOT GIVEN THIS ADMISSION Time: Dextrose/Dextrin/Maltose (Insta-Glucose Gel) 24 GRAM/31 GRAM GEL..GRAM. 24 Gram ORAL DAILY as needed for GLUCOSE<60 Qty = 30 Comments: NOT TAKEN IN HOSPITAL Glucagon,Human Recombinant (Glucagon Emergency Kit) 1 MG KIT 1 Milligram INTRAMUSC As Directed as needed for HYPOGLYCEMIA Qty = 30 Metformin HCl (Fortamet) 1,000 MG TAB.ER.24 1 Tablet ORAL TWICE DAILY Qty = 60 Comments: Last Taken:NOT GIVEN THIS ADMISSION Time: Calcium Carbonate (TUMS) 200 MG CALCIUM (500 MG) TAB.CHEW 2 Tablet ORAL 4 TIMES A DAY Qty = 60 Comments: NOT GIVEN THIS ADMISSION Mirabegron (Myrbetriq) 50 MG TAB.ER.24H 0.5 Tablet ORAL 1200 Qty = 30 Comments: Last Taken: 11/22/17 Time: 9 AM Ipratropium/Albuterol Sulfate (Iprat-Albut 0.5-3(2.5) MG/3 Ml) 0.5 MG-3 MG (2.5 MG BASE)/3 ML AMPUL.NEB 1 Inhalation ORAL EVERY SIX HOURS Qty = 30 Comments: NOT GIVEN THIS ADMISSION Cyanocobalamin (Vitamin B-12) (Cyanocobalamin Injection) 1,000 MCG/ML VIAL 1 Milliliters INTRAMUSC ONCE A MONTH Qty = 1 Instructions: GIVEN ON OF EACH MONTH Comments: NOT GIVEN THIS ADMISSION Ibuprofen (Ibuprofen) 400 MG TABLET 0.5 Tablet ORAL EVERY SIX HOURS NEEDED as needed for PAIN Qty = 60 Comments: Last Taken: 11/22/17 Time: 6:00 AM Docusate Sodium (Colace) 100 MG CAPSULE 1 Capsule ORAL TWICE DAILY Qty = 60 Instructions: HOLD IF LOOSE STOOL Comments: Last Taken: 11/22/17 Time: 9:00 AM Sitagliptin Phosphate (Januvia) 100 MG TABLET 1 Tablet ORAL DAILY Qty = 30 Comments: NOT TAKEN IN HOSPITAL Magnesium Hydroxide (Milk Of Magnesia) 400 MG/5 ML ORAL.SUSP 30 Milliliters ORAL TWICE DAILY as needed for CONSTIPATION Instructions: HOLD IF LOOSE STOOLS Comments: Last Taken: 11/22/17 @ 1:00 PM Soft Lens Rinse-Store Solution (Saline Solution) 360 ML SOLUTION 2 [place] In the nose TWICE DAILY as needed for ALLERGIES Instructions: GIVEN IN EACH NOSTRIL Comments: NOT TAKEN IN HOSPITAL Polyvinyl Alcohol (Artificial Tears) 1.4 % DROPS 2 DROP On the skin TWICE DAILY as needed for DRY EYES Comments: Last Taken:NOT GIVEN THIS ADMISSION Time: Acetaminophen (Acephen) 650 MG SUPP.RECT 1 Milligram RECTAL Every 4 hours as needed for TEMP Instructions: IF TEMP >101F GIVE Comments: NOT TAKEN IN HOSPITAL Dipyridamole W/ Aspirin (Aggrenox 25 MG-200 MG Capsule) 25 MG-200 MG CPMP.12HR 1 Capsule ORAL TWICE DAILY Qty = 60 Comments: Last Taken: 11/22/17 Time: 9:00 AM Bisacodyl (Bisac-Evac) 10 MG SUPP.RECT 10 Milligram RECTAL DAILY as needed for CONSTIPATION Comments: NOT GIVEN THIS ADMISSION Na Phos,M-B/Na Phos,Di-Ba (Enema Ready To Use) 19 GRAM-7 GRAM/118 ML ENEMA 1 Application RECTAL DAILY as needed for CONSTIPATION Comments: Last Taken:NOT GIVEN THIS ADMISSION Time: Psyllium Husk (Fiber Laxative) 0.52 GRAM CAPSULE 1 Capsule ORAL DAILY as needed for DIARRHEA Qty = 30 Comments: Last Taken:NOT GIVEN THIS ADMISSION Time: (MIRALAX TAKEN 11/21/17) Atorvastatin Calcium (Atorvastatin Calcium) 40 MG TABLET 40 Milligram ORAL 5 PM Days = 90 Comments: Last Taken: 11/21/17 Time: 4:00 PM Hydrocodone/Acetaminophen (Hydrocodon-Acetaminophen 5-325) 5 MG-325 MG TABLET 1 Tablet ORAL EVERY SIX HOURS NEEDED as needed for pain 8-10 Days = 10 Comments: NOT TAKEN IN HOSPITAL Hydrocortisone (Hydrocortisone) 1 % CREAM..G. 1 Application On the skin TWICE DAILY Qty = 30 Instructions: apply to affected area(s) Comments: Last Taken: 11/22/17 Time: 9:00 AM Insulin-Lantus (Lantus) 100 UNIT/ML VIAL 28 Units Inject into fatty tissue DAILY Qty = 3 Comments: LEVEMIR GIVEN: 11/22/17 @ 9 AM Pregabalin (Lyrica) 100 MG CAPSULE 1 Capsule ORAL THREE TIMES DAILY Comments: LAST TAKEN: 11/22/17 4 PM Isosorbide Mononitrate (Isosorbide Mononitrate ER) 60 MG TAB.ER.24H 1 Tablet ORAL DAILY Qty = 30 Comments: LAST TAKEN: 12/18/17 @ 9 AM Start taking the following new medications: Amoxicillin/Potassium Clav (Augmentin 875-125 Tablet) 875 MG-125 MG TABLET 1 Tablet ORAL TWICE DAILY Qty = 6 No Refills Comments: LAST TAKEN: 11/22/17 @ 9 AM Copies To: Andre MORENO,Grant Scott Attending MD Review Statement Documenting Attending: Neel Fields MD Other Findings: The patient was seen and agree with the above assessment and plan of care upon discharge.
--- NOTE | 2017-11-22 08:31 | Cons- Wound Care ---
General Information and HPI Consulting Request Date of Consult: 11/22/17 Requested By: Josselin Lemus MD Reason for Consult: Sacral pressure ulcer present on admission History of Present Illness: Patient is 67-year-old woman admitted with aspiration pneumonia and found to have a small sacral pressure ulcer present on admission. Allergies/Medications Allergies: Coded Allergies: NO KNOWN ALLERGIES (UNKNOWN 05/04/17) Home Med List: Acetaminophen 325 MG CAPSULE 2 TAB PO Q4P PRN PAIN (Reported) Acetaminophen (Acephen) 650 MG SUPP.RECT 1 MG RC Q4 PRN TEMP (Reported) IF TEMP >101F GIVE Atorvastatin Calcium 40 MG TABLET 40 MG PO 1700 cholesterol Bisacodyl (Bisac-Evac) 10 MG SUPP.RECT 10 MG RC DAILY PRN CONSTIPATION ( Reported) Calcium Carbonate (TUMS) 200 MG CALCIUM (500 MG) TAB.CHEW 2 TAB PO 4 TIMES/DAY GERD (Reported) Citalopram Hydrobromide (Celexa) 20 MG TABLET 1 TAB PO DAILY DEPRESSION ( Reported) Cyanocobalamin (Vitamin B-12) (Cyanocobalamin Injection) 1,000 MCG/ML VIAL 1 ML IM Q30D LOW VIT B12 (Reported) GIVEN ON OF EACH MONTH Dextrose/Dextrin/Maltose (Insta-Glucose Gel) 24 GRAM/31 GRAM GEL..GRAM. 24 GM PO DAILY PRN GLUCOSE<60 (Reported) Diphenhydramine HCl (Banophen) 25 MG CAPSULE 1 TAB PO Q6 PRN ITCHING ( Reported) Dipyridamole W/ Aspirin (Aggrenox 25 MG-200 MG Capsule) 25 MG-200 MG CPMP.12HR 1 CAP PO BID CVA (Reported) Docusate Sodium (Colace) 100 MG CAPSULE 1 CAP PO BID CONSTIPATION (Reported) HOLD IF LOOSE STOOL Estradiol (Estring) 7.5 MCG/24 HOUR VAG.RING 2 MG VAG ESTROGEN (Reported) Glucagon,Human Recombinant (Glucagon Emergency Kit) 1 MG KIT 1 MG IM AD PRN HYPOGLYCEMIA (Reported) Hydrocodone/Acetaminophen (Hydrocodon-Acetaminophen 5-325) 5 MG-325 MG TABLET 1 TAB PO Q6P PRN pain 8-10 Hydrocortisone 1 % CREAM..G. 1 LIZBETH TOP BID rash (arm) apply to affected area(s) Ibuprofen 400 MG TABLET 0.5 TAB PO Q6P PRN PAIN (Reported) Insulin-Lantus (Lantus) 100 UNIT/ML VIAL 28 UNITS SC DAILY DIABETES (Reported ) Ipratropium/Albuterol Sulfate (Iprat-Albut 0.5-3(2.5) MG/3 Ml) 0.5 MG-3 MG (2.5 MG BASE)/3 ML AMPUL.NEB 1 INH PO Q6 COPD (Reported) Lorazepam (Ativan) 0.5 MG TABLET 0.5 TAB PO Q8P PRN ANXIETY (Reported) Magnesium Hydroxide (Milk Of Magnesia) 400 MG/5 ML ORAL.SUSP 30 ML PO BID PRN CONSTIPATION (Reported) HOLD IF LOOSE STOOLS Metformin HCl (Fortamet) 1,000 MG TAB.ER.24 1 TAB PO BID DM TYPE 2 (Reported) Mirabegron (Myrbetriq) 50 MG TAB.ER.24H 0.5 TAB PO 1200 UNRINARY (Reported) Na Phos,M-B/Na Phos,Di-Ba (Enema Ready To Use) 19 GRAM-7 GRAM/118 ML ENEMA 1 LIZBETH RC DAILY PRN CONSTIPATION (Reported) Polyvinyl Alcohol (Artificial Tears) 1.4 % DROPS 2 DROP TOP BID PRN DRY EYES (Reported) Pregabalin (Lyrica) 100 MG CAPSULE 1 CAP PO TID MUSCLE SPASMS (Reported) Psyllium Husk (Fiber Laxative) 0.52 GRAM CAPSULE 1 CAP PO DAILY PRN DIARRHEA (Reported) Sitagliptin Phosphate (Januvia) 100 MG TABLET 1 TAB PO DAILY TYPE 2 DM ( Reported) Soft Lens Rinse-Store Solution (Saline Solution) 360 ML SOLUTION 2 SPRAY BISI BID PRN ALLERGIES (Reported) GIVEN IN EACH NOSTRIL Tizanidine HCl (Zanaflex) 2 MG CAPSULE 1 CAP PO BID MUSLCE SPAMS (Reported) Tramadol HCl 50 MG TABLET 1 TAB PO BIDP PRN PAIN (Reported) Review of Systems Review of Systems: Noncontributory Past History Travel History Traveled to [place] past 21 day No Medical History Neurological: CVA, migraine EENT: NONE Cardiovascular: NONE Respiratory: pneumonia, ASPIRATION PNA Gastrointestinal: NONE Hepatic: NONE Renal: UTI'S Musculoskeletal: disk herniation, C-SPINE Psychiatric: NONE Endocrine: diabetes Blood Disorders: NONE Cancer(s): NONE GERICARE AIDE/Reproductive: NONE Surgical History Surgical History: non-contributory Family History Relations & Conditions If Any: FATHER (diabetes). Psychosocial History Where Do You Live? Extended Care Facility Services at Home: Nursing Primary Language: Japanese Smoking Status: Former Smoker ETOH Use: denies use Illicit Drug Use: denies illicit drug use Functional Ability Ambulation: non-ambulatory Exam & Diagnostic Data Vital Signs and I&O Vital Signs Result Date Time Pulse Ox 94 11/23 555 B/P 118/68 11/23 555 O2 Delivery Room Air 11/23 555 Temp 97.9 11/23 555 Pulse 64 11/23 555 Resp 22 11/23 555 O2 Flow Rate 0.5L 11/21 08 Intake & Output 11/22 0000 11/21 1600 11/21 08 Intake Total 250 1960 240 Output Total Balance 250 1960 240 Intake, IV 10 120 Intake, Oral 240 1840 240 Number 2 Bowel Movements Exam shows there to be approximately 0.6 x 0.1 cm stage II pressure ulcer over the sacrum over both buttocks are areas of erythema likely secondary to stage I pressure ulcers measuring approximately 4-5 cm in diameter. Assessment/Plan Impression/Plan: 67-year-old woman admitted with aspiration pneumonia CVA immobile admitted with small probable stage II pressure ulcer over her sacrum and stage I pressure ulcers of her buttocks. Recommend application of thin DuoDERM to sacral ulcer and barrier cream to her buttocks as she is incontinent. Areas should be offloaded. Consult Acknowledgment - Thank you for your consult request.
[2017-11-22 10:27] VITALS: BP 138/78
[2017-11-22] MEDS ORDERED: AUGMENTIN 875-1 EACH PO (13:54)
[2017-11-22] MEDS ORDERED: ISOSORBIDE MONO60 M1 PO (14:28)
[2017-11-22 16:12] VITALS: BP 130/70
[2017-11-22] MEDS ORDERED: BUPROPION XL150 MG PO (16:29)
[2017-11-22] MEDS ORDERED: TRICOR48 M1 PO (16:30)
[2017-11-22] MEDS ORDERED: CELEXA10 M1 PO (16:30)
[2017-11-22] MEDS ORDERED: LYRICA75 M1 PO (16:31)
[2017-11-22] MEDS ORDERED: LANTUS SOL100 UNIT/1 SC (16:31)
[2017-11-22 17:46] VITALS: BP 130/70
== END 2017-11-22 19:00 | DRG 871 ==
LOC: ERH 22:52 → ERHI 11-19 00:55 → 2NB 11-19 00:55 → ENRESERV 11-19 01:50 → 2NB 11-19 02:52
PROVIDERS: Internal Medicine; Physician Assistant; Student in an Organized Health Care Education/Training Program
DX: A41.9 Sepsis, unspecified organism (principal); J69.0 Pneumonitis due to inhalation of food and vomit; J96.01 Acute respiratory failure with hypoxia; L89.152 Pressure ulcer of sacral region, stage 2; L89.311 Pressure ulcer of right buttock, stage 1; E11.9 Type 2 diabetes mellitus without complications; B96.20 Unspecified Escherichia coli [E. coli] as the cause of diseases classified elsewhere; I69.359 Hemiplegia and hemiparesis following cerebral infarction affecting unspecified side; I50.22 Chronic systolic (congestive) heart failure; I11.0 Hypertensive heart disease with heart failure; J44.9 Chronic obstructive pulmonary disease, unspecified; Z79.4 Long term (current) use of insulin; F32.9 Major depressive disorder, single episode, unspecified; F41.9 Anxiety disorder, unspecified; E78.5 Hyperlipidemia, unspecified; M19.90 Unspecified osteoarthritis, unspecified site; M54.2 Cervicalgia; M54.9 Dorsalgia, unspecified; N32.81 Overactive bladder; M43.02 Spondylolysis, cervical region; K21.9 Gastro-esophageal reflux disease without esophagitis; R13.12 Dysphagia, oropharyngeal phase; Z66 Do not resuscitate; K59.00 Constipation, unspecified
CPT/HCPCS: 2NBSP; 36592; 71045; 81001; 82436; 87040; 87086; 87449; 87450; 87804; 87804-59; 93005; 93010; 96361; 96374; 96375; 99291; J0131; J1650; J2405